=== PATIENT | male | born 1940 | race Caucasian/White ===

== ENCOUNTER 2017-09-13 08:06 | Inpatient (IN) ==
[2017-09-13] MEDS ORDERED: cefTRIAXone 1,000 MG in SODIUM CHLORIDE 0.9% 100 ML IV STA (08:39)
[2017-09-13] MEDS: ALBUTEROL 2.5 MG/3 ML NEB RESP TX SCH ×5 (08:53→16:00)
[2017-09-13] MEDS ORDERED: cefTRIAXone 1,000 MG in SYRINGE 1 EACH IV STA (09:02)
[2017-09-13 09:11] LABS: Basophils # 0.1 10*3/uL (0.0-0.2); Basophils % 0.5 % (0.0-0.8); Eosinophils # 0.1 10*3/uL (0.0-0.87); Eosinophils % 0.7 % (0.00-10.9); Hematocrit 38.4 VOL% (42.0-52.0); Hemoglobin 12.6 GM/DL (14.0-18.0); Immature Granulocytes % 1.5 %; Immature Granulocytes Absolute 0.27 #; Lymphocytes # 0.7 10*3/uL (1.4-4.0); Lymphocytes % 3.8 % (21.2-54.2); Mean Corpuscular HGB Conc 32.8 GM/DL (32-36); Mean Corpuscular Hemoglobin 32 PG (27-34); Mean Platelet Volume 11.4 FL (9.6-12.0); Monocytes # 0.9 10*3/uL (0.11-0.8); Monocytes % 5.1 % (1.7-12.7); Neutrophils # 15.5 10*3/uL (1.4-7.4); Neutrophils % 88.4 % (38.7-73.9); Platelet Count 145 T/CUMM (130-400); Red Blood Count 3.92 MC/CUMM (3.8-5.5); Red Cell Distribution Width 13.1 % (9.3-17.3); White Blood Count 17.6 T/CUMM (4-12)
[2017-09-13 09:23] LABS: Albumin 3.7 G/DL (3.4-5.0); Bilirubin,Total 1.4 MG/DL (0.2-1.0); Calcium 8.9 MG/DL (8.5-10.1); Osmolality,Calculated 279.1 MOS/KG (273-304); Troponin I Only 0.055 NG/ML (0.00-0.045)
[2017-09-13 10:03] LABS: Band Neutrophils 38 % (0-10); Eosinophils 1 % (0-10); Lymphocytes 4 % (20-55); Segmented Neutrophils 48 % (50-85); Total Cells Counted 100
[2017-09-13 10:04] LABS: Anisocytosis 1+; Platelet Estimate Adequate
[2017-09-13 10:14] LABS: Lactic Acid 2.2 MMOL/L (0.4-2.0)
[2017-09-13] MEDS ORDERED: ONDANSETRON 4 MG/2 ML VIAL IV PRN (10:34)
[2017-09-13] MEDS ORDERED: NITROGLYCERIN SL 0.4 MG TABLET SL PRN (10:38)
[2017-09-13] MEDS ORDERED: cefTRIAXone 1,000 MG in SYRINGE 1 EACH IV SCH (11:00)
[2017-09-13] MEDS: ENOXAPARIN 40 MG/0.4 ML SYRINGE SUBCUT SCH (12:19)
[2017-09-13] MEDS: SODIUM CHLORIDE 0.9% 1,000 ML IV SCH ×2 (12:22→21:54)
[2017-09-13] MEDS: AZITHROMYCIN INJ 500 MG in SODIUM CHLORIDE 0.9% 250 ML IV SCH (12:23)
[2017-09-13] MEDS ORDERED: METOPROLOL TARTRATE 25 MG TABLET PO ONE (17:01)
[2017-09-13] MEDS ORDERED: METOPROLOL SUCCINATE XL 50 MG TABLET PO ONE (17:08)
[2017-09-13] MEDS: ALBUTEROL/IPRATROPIUM 3 ML NEB RESP TX SCH (19:10)
[2017-09-13] MEDS: BUDESONIDE 0.25 MG/2 ML NEB RESP TX SCH (19:10)
[2017-09-13] MEDS: DOCUSATE SODIUM 100 MG CAPSULE PO SCH (21:49)
[2017-09-13] MEDS: INSULIN REGULAR 100 UNIT/ML SUBCUT SCH (21:49)
[2017-09-13] MEDS ORDERED: METOPROLOL TARTRATE 50 MG TABLET PO ONE (23:53)
[2017-09-14] MEDS: ALBUTEROL/IPRATROPIUM 3 ML NEB RESP TX SCH ×4 (00:11→19:40)
[2017-09-14] MEDS: SODIUM CHLORIDE 0.9% 1,000 ML IV SCH ×3 (05:45→21:38)
[2017-09-14 06:36] LABS: Basophils # 0.1 10*3/uL (0.0-0.2); Basophils % 0.4 % (0.0-0.8); Eosinophils # 0.3 10*3/uL (0.0-0.87); Eosinophils % 2.2 % (0.00-10.9); Hemoglobin 11.6 GM/DL (14.0-18.0); Immature Granulocytes Absolute 0.12 #; Lymphocytes # 0.9 10*3/uL (1.4-4.0); Lymphocytes % 7.6 % (21.2-54.2); Mean Corpuscular HGB Conc 33.1 GM/DL (32-36); Mean Corpuscular Hemoglobin 33 PG (27-34); Mean Corpuscular Volume 99.2 FL (87-102); Mean Platelet Volume 11.9 FL (9.6-12.0); Monocytes # 0.6 10*3/uL (0.11-0.8); Monocytes % 5.1 % (1.7-12.7); Neutrophils # 9.8 10*3/uL (1.4-7.4); Neutrophils % 83.7 % (38.7-73.9); Platelet Count 131 T/CUMM (130-400); Red Blood Count 3.53 MC/CUMM (3.8-5.5); Red Cell Distribution Width 13.2 % (9.3-17.3); White Blood Count 11.7 T/CUMM (4-12)
[2017-09-14 06:54] LABS: Calcium 8.4 MG/DL (8.5-10.1); Osmolality,Calculated 286.3 MOS/KG (273-304); Potassium 3.9 MMOL/L (3.5-5.1)
[2017-09-14 06:57] LABS: Amorphous Crystals,Urine Occasional /HPF (Few); Apearance,Urine Slightly Hazy (Clear); Bacteria,Urine Few /HPF (Few); Bilirubin,Urine Negative (Negative); Blood, Urine Small mg/dL (Negative); Glucose,Urine (UA) >=500 mg/dL (Negative); Ketones,Urine Negative (Negative); Nitrite,Urine Negative (Negative); Protein,Urine 100 MG/DL; RBC,Urine 15 /HPF (0-4); Urine Color Amber (Yellow); Urine Specific Gravity 1.022 (1.001-1.035); Urine Urobilinogen < 2.0 EU/DL (0.2-1.0); WBC,Urine 1 /HPF (0-6)
[2017-09-14] MEDS: BUDESONIDE 0.25 MG/2 ML NEB RESP TX SCH ×2 (07:20→19:40)
[2017-09-14] MEDS ORDERED: METOPROLOL SUCCINATE XL 50 MG TABLET PO SCH (09:00)
[2017-09-14] MEDS: PANTOPRAZOLE 40 MG TABLET PO SCH (09:22)
[2017-09-14] MEDS: MAGNESIUM OXIDE 400 MG TABLET PO SCH (09:22)
[2017-09-14] MEDS: ROSUVASTATIN 20 MG TABLET PO SCH (09:22)
[2017-09-14] MEDS: GLIMEPIRIDE 2 MG TABLET PO SCH (09:22)
[2017-09-14] MEDS: LOSARTAN 50 MG TABLET PO SCH (09:23)
[2017-09-14] MEDS: DOCUSATE SODIUM 100 MG CAPSULE PO SCH ×2 (09:23→21:30)
[2017-09-14] MEDS: ASPIRIN EC 81 MG TABLET PO SCH (09:23)
[2017-09-14] MEDS: LORATADINE 10 MG TABLET PO SCH (09:24)
[2017-09-14] MEDS: INSULIN REGULAR 100 UNIT/ML SUBCUT SCH ×4 (09:24→21:30)
[2017-09-14] MEDS: cefTRIAXone 1,000 MG in SYRINGE 1 EACH IV SCH (09:27)
[2017-09-14] MEDS: AZITHROMYCIN INJ 500 MG in SODIUM CHLORIDE 0.9% 250 ML IV SCH (12:07)
[2017-09-14] MEDS: ENOXAPARIN 40 MG/0.4 ML SYRINGE SUBCUT SCH (12:07)
[2017-09-14] MEDS ORDERED: FUROSEMIDE 20 MG/2 ML VIAL IV ONE (18:05)
[2017-09-14] MEDS ORDERED: LORazepam 2 MG/1 ML VIAL IV PRN (20:51)
[2017-09-15] MEDS: ALBUTEROL/IPRATROPIUM 3 ML NEB RESP TX SCH ×4 (00:20→20:05)
[2017-09-15 05:56] LABS: Basophils # 0.1 10*3/uL (0.0-0.2); Basophils % 0.6 % (0.0-0.8); Eosinophils # 0.4 10*3/uL (0.0-0.87); Eosinophils % 4.3 % (0.00-10.9); Hematocrit 33.6 VOL% (42.0-52.0); Hemoglobin 11.2 GM/DL (14.0-18.0); Immature Granulocytes % 0.7 %; Immature Granulocytes Absolute 0.06 #; Lymphocytes # 0.9 10*3/uL (1.4-4.0); Lymphocytes % 10.9 % (21.2-54.2); Mean Corpuscular HGB Conc 33.3 GM/DL (32-36); Mean Corpuscular Hemoglobin 32 PG (27-34); Mean Corpuscular Volume 96.8 FL (87-102); Mean Platelet Volume 11.6 FL (9.6-12.0); Monocytes # 0.6 10*3/uL (0.11-0.8); Monocytes % 6.6 % (1.7-12.7); Neutrophils # 6.6 10*3/uL (1.4-7.4); Neutrophils % 76.9 % (38.7-73.9); Platelet Count 145 T/CUMM (130-400); Red Blood Count 3.47 MC/CUMM (3.8-5.5); Red Cell Distribution Width 13.2 % (9.3-17.3); White Blood Count 8.6 T/CUMM (4-12)
[2017-09-15 06:25] LABS: Troponin I Only 0.041 NG/ML (0.00-0.045)
[2017-09-15 06:26] LABS: Calcium 8.3 MG/DL (8.5-10.1); Osmolality,Calculated 287.8 MOS/KG (273-304); Potassium 3.5 MMOL/L (3.5-5.1)
[2017-09-15] MEDS: INSULIN REGULAR 100 UNIT/ML SUBCUT SCH ×4 (07:22→21:06)
[2017-09-15] MEDS: BUDESONIDE 0.25 MG/2 ML NEB RESP TX SCH ×2 (07:43→20:05)
[2017-09-15] MEDS: ROSUVASTATIN 20 MG TABLET PO SCH (09:42)
[2017-09-15] MEDS: QUEtiapine 25 MG TABLET PO SCH ×2 (09:43→21:06)
[2017-09-15] MEDS: GLIMEPIRIDE 2 MG TABLET PO SCH (09:43)
[2017-09-15] MEDS: MAGNESIUM OXIDE 400 MG TABLET PO SCH (09:43)
[2017-09-15] MEDS: LOSARTAN 50 MG TABLET PO SCH (09:43)
[2017-09-15] MEDS: PANTOPRAZOLE 40 MG TABLET PO SCH (09:43)
[2017-09-15] MEDS: FUROSEMIDE 20 MG TABLET PO SCH (09:43)
[2017-09-15] MEDS: METOPROLOL SUCCINATE XL 50 MG TABLET PO SCH (09:43)
[2017-09-15] MEDS: DOCUSATE SODIUM 100 MG CAPSULE PO SCH ×2 (09:43→21:06)
[2017-09-15] MEDS: ASPIRIN EC 81 MG TABLET PO SCH (09:44)
[2017-09-15] MEDS: cefTRIAXone 1,000 MG in SYRINGE 1 EACH IV SCH (09:44)
[2017-09-15] MEDS: SODIUM CHLORIDE 0.9% 1,000 ML IV SCH ×2 (10:42→21:06)
[2017-09-15] MEDS: LORATADINE 10 MG TABLET PO SCH (14:12)
[2017-09-15] MEDS: ENOXAPARIN 40 MG/0.4 ML SYRINGE SUBCUT SCH (14:13)
[2017-09-15] MEDS: AZITHROMYCIN INJ 500 MG in SODIUM CHLORIDE 0.9% 250 ML IV SCH (14:15)
[2017-09-15] MEDS: DONEPEZIL 5 MG TABLET PO SCH (21:06)
[2017-09-15] MEDS: ACETAMINOPHEN 325 MG TABLET PO PRN (21:39)
[2017-09-16] MEDS: ALBUTEROL/IPRATROPIUM 3 ML NEB RESP TX SCH ×5 (00:16→19:30)
[2017-09-16] MEDS: SODIUM CHLORIDE 0.9% 1,000 ML IV SCH (05:15)
[2017-09-16] MEDS: BUDESONIDE 0.25 MG/2 ML NEB RESP TX SCH (05:41)
[2017-09-16 06:53] LABS: Basophils # 0.1 10*3/uL (0.0-0.2); Basophils % 0.6 % (0.0-0.8); Eosinophils # 0.3 10*3/uL (0.0-0.87); Eosinophils % 2.8 % (0.00-10.9); Hematocrit 32.6 VOL% (42.0-52.0); Hemoglobin 10.7 GM/DL (14.0-18.0); Immature Granulocytes % 0.7 %; Immature Granulocytes Absolute 0.07 #; Lymphocytes % 9.8 % (21.2-54.2); Mean Corpuscular HGB Conc 32.8 GM/DL (32-36); Mean Corpuscular Hemoglobin 32 PG (27-34); Mean Corpuscular Volume 97.6 FL (87-102); Mean Platelet Volume 11.5 FL (9.6-12.0); Monocytes # 0.7 10*3/uL (0.11-0.8); Monocytes % 7.3 % (1.7-12.7); Neutrophils # 7.8 10*3/uL (1.4-7.4); Neutrophils % 78.8 % (38.7-73.9); Platelet Count 140 T/CUMM (130-400); Red Blood Count 3.34 MC/CUMM (3.8-5.5); Red Cell Distribution Width 13.1 % (9.3-17.3); White Blood Count 9.9 T/CUMM (4-12)
[2017-09-16 07:10] LABS: Calcium 7.9 MG/DL (8.5-10.1); Osmolality,Calculated 283.1 MOS/KG (273-304); Potassium 3.2 MMOL/L (3.5-5.1)
[2017-09-16] MEDS: ASPIRIN EC 81 MG TABLET PO SCH (09:18)
[2017-09-16] MEDS: LOSARTAN 50 MG TABLET PO SCH (09:18)
[2017-09-16] MEDS: METOPROLOL SUCCINATE XL 50 MG TABLET PO SCH (09:18)
[2017-09-16] MEDS: LORATADINE 10 MG TABLET PO SCH (09:18)
[2017-09-16] MEDS: MAGNESIUM OXIDE 400 MG TABLET PO SCH (09:18)
[2017-09-16] MEDS: POTASSIUM CHLORIDE 20 MEQ TABLET PO SCH ×2 (09:18→20:57)
[2017-09-16] MEDS: DOCUSATE SODIUM 100 MG CAPSULE PO SCH ×2 (09:18→20:57)
[2017-09-16] MEDS: FUROSEMIDE 20 MG TABLET PO SCH (09:18)
[2017-09-16] MEDS: GLIMEPIRIDE 2 MG TABLET PO SCH (09:19)
[2017-09-16] MEDS: INSULIN REGULAR 100 UNIT/ML SUBCUT SCH ×4 (09:19→20:59)
[2017-09-16] MEDS: QUEtiapine 25 MG TABLET PO SCH ×2 (10:15→20:57)
[2017-09-16] MEDS: PANTOPRAZOLE 40 MG TABLET PO SCH (10:15)
[2017-09-16] MEDS: cefTRIAXone 1,000 MG in SYRINGE 1 EACH IV SCH (10:16)
[2017-09-16] MEDS: SODIUM CHLOR 0.9% KCL 20 MEQ 20 MEQ/1,000 ML BAG IV SCH ×2 (10:23→20:58)
[2017-09-16] MEDS: BUDESONIDE/FORMOTEROL 160-4.5 INHALER 6 GM INH SCH ×2 (12:50→20:59)
[2017-09-16] MEDS: ROSUVASTATIN 20 MG TABLET PO SCH (12:51)
[2017-09-16] MEDS: ENOXAPARIN 40 MG/0.4 ML SYRINGE SUBCUT SCH (12:51)
[2017-09-16] MEDS: AZITHROMYCIN INJ 500 MG in SODIUM CHLORIDE 0.9% 250 ML IV SCH (14:39)
[2017-09-16] MEDS: DONEPEZIL 5 MG TABLET PO SCH (20:57)
[2017-09-16] MEDS: ACETAMINOPHEN 325 MG TABLET PO PRN (21:03)
[2017-09-17] MEDS: ALBUTEROL/IPRATROPIUM 3 ML NEB RESP TX SCH ×7 (00:02→23:14)
[2017-09-17] MEDS: SODIUM CHLOR 0.9% KCL 20 MEQ 20 MEQ/1,000 ML BAG IV SCH (05:56)
[2017-09-17 07:17] LABS: Basophils # 0.1 10*3/uL (0.0-0.2); Basophils % 0.8 % (0.0-0.8); Eosinophils # 0.3 10*3/uL (0.0-0.87); Eosinophils % 3.2 % (0.00-10.9); Hematocrit 31.2 VOL% (42.0-52.0); Immature Granulocytes Absolute 0.08 #; Lymphocytes # 0.9 10*3/uL (1.4-4.0); Lymphocytes % 10.8 % (21.2-54.2); Mean Corpuscular HGB Conc 32.1 GM/DL (32-36); Mean Corpuscular Hemoglobin 32 PG (27-34); Mean Corpuscular Volume 100.6 FL (87-102); Mean Platelet Volume 11.5 FL (9.6-12.0); Monocytes # 0.6 10*3/uL (0.11-0.8); Monocytes % 7.7 % (1.7-12.7); Neutrophils # 6.1 10*3/uL (1.4-7.4); Neutrophils % 76.5 % (38.7-73.9); Platelet Count 132 T/CUMM (130-400); Red Cell Distribution Width 13.3 % (9.3-17.3); White Blood Count 7.9 T/CUMM (4-12)
[2017-09-17 07:42] LABS: Calcium 7.7 MG/DL (8.5-10.1); Osmolality,Calculated 287.7 MOS/KG (273-304); Potassium 3.8 MMOL/L (3.5-5.1)
[2017-09-17] MEDS ORDERED: SODIUM CHLORIDE 0.9% 1,000 ML IV SCH (08:00)
[2017-09-17] MEDS: GLIMEPIRIDE 2 MG TABLET PO SCH (09:14)
[2017-09-17] MEDS: DOCUSATE SODIUM 100 MG CAPSULE PO SCH ×2 (09:14→21:09)
[2017-09-17] MEDS: ROSUVASTATIN 20 MG TABLET PO SCH (09:14)
[2017-09-17] MEDS: LORATADINE 10 MG TABLET PO SCH (09:15)
[2017-09-17] MEDS: METOPROLOL SUCCINATE XL 50 MG TABLET PO SCH (09:15)
[2017-09-17] MEDS: LOSARTAN 50 MG TABLET PO SCH (09:15)
[2017-09-17] MEDS: ASPIRIN EC 81 MG TABLET PO SCH (09:15)
[2017-09-17] MEDS: PANTOPRAZOLE 40 MG TABLET PO SCH (09:15)
[2017-09-17] MEDS: MAGNESIUM OXIDE 400 MG TABLET PO SCH (09:15)
[2017-09-17] MEDS: POTASSIUM CHLORIDE 20 MEQ TABLET PO SCH ×2 (09:15→21:09)
[2017-09-17] MEDS: FUROSEMIDE 20 MG TABLET PO SCH (09:15)
[2017-09-17] MEDS: methylPREDNISolone SOD SUC 40 MG/1 ML VIAL IV SCH ×2 (09:16→17:49)
[2017-09-17] MEDS: BUDESONIDE/FORMOTEROL 160-4.5 INHALER 6 GM INH SCH ×2 (09:22→21:10)
[2017-09-17] MEDS ORDERED: FUROSEMIDE 40 MG/4 ML VIAL IV ONE (10:43)
[2017-09-17] MEDS: INSULIN REGULAR 100 UNIT/ML SUBCUT SCH ×4 (12:42→21:01)
[2017-09-17] MEDS: cefTRIAXone 1,000 MG in SYRINGE 1 EACH IV SCH (14:34)
[2017-09-17] MEDS: ENOXAPARIN 40 MG/0.4 ML SYRINGE SUBCUT SCH (14:37)
[2017-09-17] MEDS: AZITHROMYCIN INJ 500 MG in SODIUM CHLORIDE 0.9% 250 ML IV SCH (14:47)
[2017-09-17] MEDS: ACETAMINOPHEN 325 MG TABLET PO PRN (21:09)
[2017-09-17] MEDS: QUEtiapine 25 MG TABLET PO SCH (21:09)
[2017-09-17] MEDS: DONEPEZIL 5 MG TABLET PO SCH (21:09)
[2017-09-18] MEDS: methylPREDNISolone SOD SUC 40 MG/1 ML VIAL IV SCH ×4 (00:16→23:35)
[2017-09-18] MEDS: ALBUTEROL/IPRATROPIUM 3 ML NEB RESP TX SCH ×6 (03:15→23:18)
[2017-09-18 06:37] LABS: Basophils % 0.2 % (0.0-0.8); Eosinophils % 0.1 % (0.00-10.9); Hematocrit 33.1 VOL% (42.0-52.0); Immature Granulocytes % 1.6 %; Immature Granulocytes Absolute 0.15 #; Lymphocytes # 0.8 10*3/uL (1.4-4.0); Lymphocytes % 8.6 % (21.2-54.2); Mean Corpuscular HGB Conc 33.2 GM/DL (32-36); Mean Corpuscular Hemoglobin 32 PG (27-34); Mean Corpuscular Volume 97.1 FL (87-102); Mean Platelet Volume 11.7 FL (9.6-12.0); Monocytes # 0.3 10*3/uL (0.11-0.8); Monocytes % 2.6 % (1.7-12.7); Neutrophils # 8.3 10*3/uL (1.4-7.4); Neutrophils % 86.9 % (38.7-73.9); Platelet Count 167 T/CUMM (130-400); Red Blood Count 3.41 MC/CUMM (3.8-5.5); Red Cell Distribution Width 13.1 % (9.3-17.3); White Blood Count 9.6 T/CUMM (4-12)
[2017-09-18 07:11] LABS: Calcium 8.1 MG/DL (8.5-10.1); Osmolality,Calculated 288.3 MOS/KG (273-304); Potassium 3.9 MMOL/L (3.5-5.1)
[2017-09-18] MEDS: INSULIN REGULAR 100 UNIT/ML SUBCUT SCH ×4 (09:19→20:46)
[2017-09-18] MEDS: FUROSEMIDE 20 MG TABLET PO SCH (09:20)
[2017-09-18] MEDS: LORATADINE 10 MG TABLET PO SCH (09:20)
[2017-09-18] MEDS: LOSARTAN 50 MG TABLET PO SCH (09:20)
[2017-09-18] MEDS: GLIMEPIRIDE 2 MG TABLET PO SCH (09:21)
[2017-09-18] MEDS: MAGNESIUM OXIDE 400 MG TABLET PO SCH (09:21)
[2017-09-18] MEDS: ASPIRIN EC 81 MG TABLET PO SCH (09:21)
[2017-09-18] MEDS: ROSUVASTATIN 20 MG TABLET PO SCH (09:21)
[2017-09-18] MEDS: METOPROLOL SUCCINATE XL 50 MG TABLET PO SCH (09:21)
[2017-09-18] MEDS: PANTOPRAZOLE 40 MG TABLET PO SCH (09:21)
[2017-09-18] MEDS: POTASSIUM CHLORIDE 20 MEQ TABLET PO SCH ×2 (09:21→20:45)
[2017-09-18] MEDS: DOCUSATE SODIUM 100 MG CAPSULE PO SCH ×2 (09:21→20:45)
[2017-09-18] MEDS: BUDESONIDE/FORMOTEROL 160-4.5 INHALER 6 GM INH SCH ×2 (09:23→20:47)
[2017-09-18] MEDS: cefTRIAXone 1,000 MG in SYRINGE 1 EACH IV SCH (09:26)
[2017-09-18] MEDS: ENOXAPARIN 40 MG/0.4 ML SYRINGE SUBCUT SCH (12:15)
[2017-09-18] MEDS: AZITHROMYCIN INJ 500 MG in SODIUM CHLORIDE 0.9% 250 ML IV SCH (12:16)
[2017-09-18] MEDS: ACETAMINOPHEN 325 MG TABLET PO PRN (20:45)
[2017-09-18] MEDS: DONEPEZIL 5 MG TABLET PO SCH (20:45)
[2017-09-18] MEDS: QUEtiapine 25 MG TABLET PO SCH (20:45)
[2017-09-19] MEDS: ALBUTEROL/IPRATROPIUM 3 ML NEB RESP TX SCH ×2 (03:03→07:27)
[2017-09-19 06:18] LABS: Basophils % 0.1 % (0.0-0.8); Eosinophils % 0.1 % (0.00-10.9); Hematocrit 32.2 VOL% (42.0-52.0); Hemoglobin 10.3 GM/DL (14.0-18.0); Immature Granulocytes % 1.5 %; Immature Granulocytes Absolute 0.15 #; Lymphocytes # 1.2 10*3/uL (1.4-4.0); Lymphocytes % 11.4 % (21.2-54.2); Mean Corpuscular Hemoglobin 32 PG (27-34); Mean Corpuscular Volume 99.4 FL (87-102); Mean Platelet Volume 11.5 FL (9.6-12.0); Monocytes # 0.4 10*3/uL (0.11-0.8); Monocytes % 4.1 % (1.7-12.7); Neutrophils # 8.5 10*3/uL (1.4-7.4); Neutrophils % 82.8 % (38.7-73.9); Platelet Count 183 T/CUMM (130-400); Red Blood Count 3.24 MC/CUMM (3.8-5.5); Red Cell Distribution Width 13.1 % (9.3-17.3); White Blood Count 10.3 T/CUMM (4-12)
[2017-09-19 06:38] LABS: Calcium 8.3 MG/DL (8.5-10.1)
[2017-09-19 06:39] LABS: Osmolality,Calculated 284.4 MOS/KG (273-304); Potassium 4.2 MMOL/L (3.5-5.1)
[2017-09-19 06:42] LABS: Hypochromasia 1+; Platelet Estimate Adequate
[2017-09-19] MEDS: INSULIN REGULAR 100 UNIT/ML SUBCUT SCH ×2 (09:34→12:27)
[2017-09-19] MEDS: cefTRIAXone 1,000 MG in SYRINGE 1 EACH IV SCH (09:36)
[2017-09-19] MEDS: ROSUVASTATIN 20 MG TABLET PO SCH (09:38)
[2017-09-19] MEDS: ASPIRIN EC 81 MG TABLET PO SCH (09:38)
[2017-09-19] MEDS: LORATADINE 10 MG TABLET PO SCH (09:38)
[2017-09-19] MEDS: DOCUSATE SODIUM 100 MG CAPSULE PO SCH (09:38)
[2017-09-19] MEDS: GLIMEPIRIDE 2 MG TABLET PO SCH (09:38)
[2017-09-19] MEDS: LOSARTAN 50 MG TABLET PO SCH (09:38)
[2017-09-19] MEDS: methylPREDNISolone SOD SUC 40 MG/1 ML VIAL IV SCH (09:38)
[2017-09-19] MEDS: PANTOPRAZOLE 40 MG TABLET PO SCH (09:39)
[2017-09-19] MEDS: POTASSIUM CHLORIDE 20 MEQ TABLET PO SCH (09:39)
[2017-09-19] MEDS: BUDESONIDE/FORMOTEROL 160-4.5 INHALER 6 GM INH SCH (09:39)
[2017-09-19] MEDS: METOPROLOL SUCCINATE XL 50 MG TABLET PO SCH (09:39)
[2017-09-19] MEDS: FUROSEMIDE 20 MG TABLET PO SCH (09:39)
[2017-09-19] MEDS: MAGNESIUM OXIDE 400 MG TABLET PO SCH (09:39)
[2017-09-19] MEDS: ENOXAPARIN 40 MG/0.4 ML SYRINGE SUBCUT SCH (12:27)
[2017-09-19] MEDS: AZITHROMYCIN INJ 500 MG in SODIUM CHLORIDE 0.9% 250 ML IV SCH (12:38)
[2017-09-19 13:06] VITALS: BP 145/78
== END 2017-09-19 14:17 | disposition home or self-care (01) | DRG 193 ==
LOC: N.ED 08:06 → N.EDINP 10:34 → N.5E 11:02
PROVIDERS: ADMIT Family Medicine; ATTEND Family Medicine

== ENCOUNTER 2019-07-30 14:15 | Inpatient (IN) ==
[2019-07-30] MEDS ORDERED: ATROPINE 0.4 MG/1 ML VIAL ONE (14:26)
[2019-07-30] MEDS ORDERED: EPINEPHrine 1 MG/10 ML SYRINGE ONE (14:26)
[2019-07-30] MEDS ORDERED: ONDANSETRON 4 MG/2 ML VIAL ONE (14:33)
[2019-07-30 14:51] LABS: Basophils # 0.1 10*3/uL (0.0-0.2); Basophils % 0.6 % (0.0-0.8); Eosinophils # 0.2 10*3/uL (0.0-0.87); Eosinophils % 1.1 % (0.00-10.9); Hematocrit 42.8 VOL% (42.0-52.0); Hemoglobin 13.1 GM/DL (14.0-18.0); Immature Granulocytes % 1.2 %; Immature Granulocytes Absolute 0.22 #; Mean Corpuscular HGB Conc 30.6 GM/DL (32-36); Mean Corpuscular Volume 98.6 FL (87-102); Mean Platelet Volume 13.6 FL (9.6-12.0); Neutrophils % 76.1 % (38.7-73.9); Platelet Count 142 T/CUMM (130-400); Red Blood Count 4.34 MC/CUMM (3.8-5.5); Red Cell Distribution Width 13.1 % (9.3-17.3)
[2019-07-30] MEDS ORDERED: ASPIRIN 325 MG TABLET PO STA (14:54)
[2019-07-30] MEDS ORDERED: SODIUM CHLORIDE 0.9% 1,000 ML IV STA (14:54)
[2019-07-30] MEDS ORDERED: DOPamine 800 MG/250 ML PREMIX IV PRN (14:55)
[2019-07-30] MEDS ORDERED: SODIUM BICARBONATE 50 MEQ/50 ML VIAL IV STA (14:55)
[2019-07-30] MEDS ORDERED: CALCIUM CHLORIDE 1,000 MG/10 ML SYRINGE IV STA (14:55)
[2019-07-30] MEDS ORDERED: ATROPINE 1 MG/10 ML SYRINGE IV STA (14:56)
[2019-07-30] MEDS ORDERED: EPINEPHrine 1 MG/10 ML SYRINGE IV STA (14:56)
[2019-07-30 15:02] LABS: Blood Urea Nitrogen 77 MG/DL (7-18); Calcium 8.6 MG/DL (8.5-10.1); Glucose 305 MG/DL (74-106); Osmolality,Calculated 295.7 MOS/KG (273-304)
[2019-07-30 15:03] LABS: Estimated Glom Filtration Rate 9 ML/MIN
[2019-07-30 15:11] LABS: INR 1.1; PT Patient Result 11.6 SECS (9.8-11.9)
[2019-07-30] MEDS ORDERED: LIDOCAINE 1% 20 ML VIAL ONE (15:19)
[2019-07-30] MEDS ORDERED: HEPARIN/NACL 0.9% 2 UNITS/ML 1,000 ML IV ONE (15:19)
[2019-07-30] MEDS ORDERED: ACETAMINOPHEN 325 MG TABLET PO PRN (16:19)
[2019-07-30] MEDS ORDERED: ONDANSETRON 4 MG/2 ML VIAL IV PRN (16:19)
[2019-07-30] MEDS ORDERED: GLUCAGON 1 MG VIAL IM PRN (16:24)
[2019-07-30] MEDS ORDERED: DEXTROSE 50% 25 GM/50 ML VIAL IV PRN (16:24)
[2019-07-30] MEDS ORDERED: SODIUM CHLORIDE 0.9% 1,000 ML IV SCH (16:30)
[2019-07-30 18:37] LABS: Amorphous Crystals,Urine Occasional /HPF (Few); Apearance,Urine Slightly Hazy (Clear); Bacteria,Urine Occasional /HPF (Few); Bilirubin,Urine Negative (Negative); Blood, Urine Small mg/dL (Negative); Glucose,Urine (UA) Negative (Negative); Hyaline Casts,Urine 229 /LPF (0-3); Ketones,Urine Negative (Negative); Mucus,Urine Occasional /LPF (Occasional); Nitrite,Urine Negative (Negative); Protein,Urine 100 MG/DL; RBC,Urine 2 /HPF (0-4); Squamous Epithelial Cell,Urine Occasional /HPF (0-10); Urine Color Yellow (Yellow); Urine Specific Gravity 1.013 (1.001-1.035); Urine Urobilinogen < 2.0 EU/DL (0.2-1.0)
[2019-07-30] MEDS: INSULIN REGULAR 100 UNIT/ML SUBCUT SCH ×2 (18:48→21:22)
[2019-07-30] MEDS: DOPamine 800 MG/250 ML PREMIX IV PRN (20:45)
[2019-07-31] MEDS: DOPamine 800 MG/250 ML PREMIX IV PRN (04:34)
[2019-07-31 05:31] LABS: Basophils # 0.1 10*3/uL (0.0-0.2); Basophils % 0.4 % (0.0-0.8); Eosinophils # 0.1 10*3/uL (0.0-0.87); Eosinophils % 0.5 % (0.00-10.9); Hematocrit 38.9 VOL% (42.0-52.0); Hemoglobin 12.1 GM/DL (14.0-18.0); Immature Granulocytes % 0.7 %; Immature Granulocytes Absolute 0.13 #; Lymphocytes # 1.2 10*3/uL (1.4-4.0); Lymphocytes % 6.6 % (21.2-54.2); Mean Corpuscular HGB Conc 31.1 GM/DL (32-36); Mean Platelet Volume 12.7 FL (9.6-12.0); Monocytes % 6.5 % (1.7-12.7); Neutrophils % 85.3 % (38.7-73.9); Platelet Count 133 T/CUMM (130-400); Red Blood Count 3.97 MC/CUMM (3.8-5.5); White Blood Count 18.6 T/CUMM (4-12)
[2019-07-31 06:17] LABS: Calcium 9.1 MG/DL (8.5-10.1); Osmolality,Calculated 288.4 MOS/KG (273-304); Risk Ratio 2.86; VLDL CHOLESTEROL 23.6 MG/DL
[2019-07-31] MEDS: INSULIN REGULAR 100 UNIT/ML SUBCUT SCH ×4 (09:18→21:23)
[2019-07-31] MEDS: HYDROCORTISONE 100 MG VIAL IV SCH ×2 (09:40→18:32)
[2019-07-31] MEDS ORDERED: SODIUM POLYSTYRENE SULFATE 15 GM/60 ML BOTTLE PO PRN (10:17)
[2019-07-31] MEDS: ENOXAPARIN 30 MG/0.3 ML SYRINGE SUBCUT SCH (10:47)
[2019-07-31] MEDS: SODIUM BICARB INJ 50 MEQ in SODIUM CHLORIDE 0.45% 1,000 ML IV SCH (11:35)
[2019-07-31] MEDS: MORPHINE 4 MG/1 ML VIAL IV PRN (23:15)
[2019-07-31] MEDS: ZALEPLON 5 MG CAPSULE PO PRN (23:15)
[2019-07-31] MEDS ORDERED: LORazepam 2 MG/1 ML VIAL IV ONE (23:56)
[2019-07-31] MEDS ORDERED: diphenhydrAMINE 50 MG/1 ML VIAL IV ONE (23:56)
[2019-08-01] MEDS ORDERED: HALOPERIDOL 5 MG/ML AMP IV ONE ×2 (01:26→02:09)
[2019-08-01] MEDS ORDERED: diphenhydrAMINE 50 MG/1 ML VIAL IV ONE ×2 (01:27→02:09)
[2019-08-01 02:23] LABS: Allen Test Positive; Pt O2 Delivery Device BIPAP
[2019-08-01 02:24] LABS: ABG Base Excess -4.3 MMOL/L (-2.5-2.5); ABG HCO3 20.9 MMOL/L (20-26); ABG Oxygen Saturation 99.8 % (95-100); ABG PCO2 42.8 MM HG (35-48); ABG PH 7.315 (7.35-7.45); ABG TCO2 19.6 MMOL/L (23-27)
[2019-08-01] MEDS ORDERED: HYDROCORTISONE 100 MG VIAL IV SCH (04:00)
[2019-08-01] MEDS: HYDROCORTISONE 100 MG VIAL IV SCH (04:34)
[2019-08-01 04:51] LABS: Basophils % 0.3 % (0.0-0.8); Eosinophils % 0.3 % (0.00-10.9); Hematocrit 32.8 VOL% (42.0-52.0); Hemoglobin 10.4 GM/DL (14.0-18.0); Immature Granulocytes % 0.7 %; Immature Granulocytes Absolute 0.08 #; Lymphocytes # 0.7 10*3/uL (1.4-4.0); Lymphocytes % 5.6 % (21.2-54.2); Mean Corpuscular HGB Conc 31.7 GM/DL (32-36); Mean Corpuscular Volume 95.3 FL (87-102); Mean Platelet Volume 13.3 FL (9.6-12.0); Monocytes % 4.9 % (1.7-12.7); Neutrophils % 88.2 % (38.7-73.9); Red Blood Count 3.44 MC/CUMM (3.8-5.5); Red Cell Distribution Width 13.2 % (9.3-17.3); White Blood Count 11.5 T/CUMM (4-12)
[2019-08-01 05:03] LABS: Calcium 8.6 MG/DL (8.5-10.1); Osmolality,Calculated 298.8 MOS/KG (273-304)
[2019-08-01 05:07] LABS: Platelet Count 107 T/CUMM (130-400)
[2019-08-01 05:10] LABS: Hypochromasia 1+; Microcytosis 1+
[2019-08-01] MEDS: SODIUM BICARB INJ 50 MEQ in SODIUM CHLORIDE 0.45% 1,000 ML IV SCH (06:39)
[2019-08-01] MEDS ORDERED: LIDOCAINE 1%/EPI INJ 20 ML VIAL ONE (08:40)
[2019-08-01] MEDS ORDERED: HYDROmorphone 2 MG/1 ML VIAL ONE (09:06)
[2019-08-01] MEDS ORDERED: MIDAZOLAM 2 MG/2 ML VIAL ONE (09:06)
[2019-08-01] MEDS ORDERED: ceFAZolin 1,000 MG VIAL ONE (09:11)
[2019-08-01] MEDS ORDERED: TISSUE ADHESIVE 1 EACH APPLICATOR TOP ONE (09:17)
[2019-08-01] MEDS: INSULIN REGULAR 100 UNIT/ML SUBCUT SCH ×4 (09:26→20:56)
[2019-08-01] MEDS ORDERED: HEPARIN/NACL 0.9% 2 UNITS/ML 500 ML IV ONE (10:25)
[2019-08-01] MEDS: ENOXAPARIN 30 MG/0.3 ML SYRINGE SUBCUT SCH (10:42)
[2019-08-01] MEDS: SODIUM CHLORIDE 0.45% 1,000 ML IV SCH ×2 (10:42→19:01)
[2019-08-01] MEDS ORDERED: DEXTROSE 10% 250 ML IV ONE (15:33)
[2019-08-01] MEDS: DEXTROSE 10% 1,000 ML IV SCH ×2 (15:36→15:43)
[2019-08-01] MEDS ORDERED: DEXTROSE 10% 250 ML IV SCH (15:42)
[2019-08-01] MEDS: ACETAMINOPHEN/CODEINE 300-30 MG TABLET PO PRN (20:55)
[2019-08-01] MEDS: ZALEPLON 5 MG CAPSULE PO PRN (21:00)
[2019-08-01] MEDS: MORPHINE 4 MG/1 ML VIAL IV PRN (21:00)
[2019-08-02] MEDS: SODIUM CHLORIDE 0.45% 1,000 ML IV SCH ×3 (01:30→22:13)
[2019-08-02] MEDS: MORPHINE 4 MG/1 ML VIAL IV PRN (04:30)
[2019-08-02 04:57] LABS: Basophils # 0.1 10*3/uL (0.0-0.2); Basophils % 0.7 % (0.0-0.8); Eosinophils # 0.2 10*3/uL (0.0-0.87); Eosinophils % 1.9 % (0.00-10.9); Hemoglobin 11.1 GM/DL (14.0-18.0); Lymphocytes # 0.8 10*3/uL (1.4-4.0); Mean Corpuscular HGB Conc 30.8 GM/DL (32-36); Mean Corpuscular Volume 99.2 FL (87-102); Mean Platelet Volume 12.2 FL (9.6-12.0); Monocytes % 6.5 % (1.7-12.7); Neutrophils % 81.9 % (38.7-73.9); Platelet Count 116 T/CUMM (130-400); Red Blood Count 3.63 MC/CUMM (3.8-5.5); Red Cell Distribution Width 13.2 % (9.3-17.3); White Blood Count 10.3 T/CUMM (4-12)
[2019-08-02 05:17] LABS: Calcium 8.6 MG/DL (8.5-10.1); Osmolality,Calculated 291.7 MOS/KG (273-304)
[2019-08-02] MEDS ORDERED: DEXTROSE 10% 250 ML BAG IV PRN (05:39)
[2019-08-02] MEDS ORDERED: DEXTROSE 10% 1,000 ML IV SCH (06:00)
[2019-08-02] MEDS: INSULIN REGULAR 100 UNIT/ML SUBCUT SCH ×4 (08:33→22:12)
[2019-08-02] MEDS: ENOXAPARIN 30 MG/0.3 ML SYRINGE SUBCUT SCH (10:35)
[2019-08-02] MEDS ORDERED: METOPROLOL SUCCINATE XL 25 MG TABLET PO SCH (12:00)
[2019-08-02] MEDS: ALBUTEROL/IPRATROPIUM 3 ML NEB RESP TX PRN ×2 (13:00→21:02)
[2019-08-02] MEDS: DUTASTERIDE 0.5 MG CAPSULE PO SCH (18:33)
[2019-08-02] MEDS: ZALEPLON 5 MG CAPSULE PO PRN (22:11)
[2019-08-02] MEDS: ACETAMINOPHEN/CODEINE 300-30 MG TABLET PO PRN (22:11)
[2019-08-02] MEDS: DONEPEZIL 10 MG TABLET PO SCH (22:12)
[2019-08-02] MEDS: PRAMIPEXOLE 0.25 MG TABLET PO SCH (22:12)
[2019-08-02] MEDS: QUEtiapine 25 MG TABLET PO SCH (22:12)
[2019-08-03 06:33] LABS: Basophils # 0.1 10*3/uL (0.0-0.2); Basophils % 0.6 % (0.0-0.8); Eosinophils # 0.3 10*3/uL (0.0-0.87); Eosinophils % 3.1 % (0.00-10.9); Hematocrit 33.2 VOL% (42.0-52.0); Hemoglobin 10.2 GM/DL (14.0-18.0); Immature Granulocytes % 0.8 %; Immature Granulocytes Absolute 0.07 #; Lymphocytes # 0.6 10*3/uL (1.4-4.0); Lymphocytes % 6.7 % (21.2-54.2); Mean Corpuscular HGB Conc 30.7 GM/DL (32-36); Mean Corpuscular Volume 98.2 FL (87-102); Monocytes % 7.4 % (1.7-12.7); Neutrophils % 81.4 % (38.7-73.9); Platelet Count 110 T/CUMM (130-400); Red Blood Count 3.38 MC/CUMM (3.8-5.5); Red Cell Distribution Width 13.1 % (9.3-17.3); White Blood Count 8.3 T/CUMM (4-12)
[2019-08-03 06:56] LABS: Calcium 8.6 MG/DL (8.5-10.1); Osmolality,Calculated 282.8 MOS/KG (273-304)
[2019-08-03] MEDS ORDERED: FUROSEMIDE 40 MG/4 ML VIAL IV ONE (09:00)
[2019-08-03] MEDS: DUTASTERIDE 0.5 MG CAPSULE PO SCH (09:28)
[2019-08-03] MEDS: LORATADINE 10 MG TABLET PO SCH (09:28)
[2019-08-03] MEDS: ROSUVASTATIN 20 MG TABLET PO SCH (09:29)
[2019-08-03] MEDS: MAGNESIUM OXIDE 400 MG TABLET PO SCH (09:29)
[2019-08-03] MEDS: minoxidiL 2.5 MG TABLET PO SCH ×2 (09:29→20:40)
[2019-08-03] MEDS: ASPIRIN EC 81 MG TABLET PO SCH (09:30)
[2019-08-03] MEDS: CYANOCOBALAMIN 500 MCG TABLET PO SCH (09:30)
[2019-08-03] MEDS: cloNIDine 0.1 MG TABLET PO SCH (09:30)
[2019-08-03] MEDS: METOPROLOL SUCCINATE XL 25 MG TABLET PO SCH (09:30)
[2019-08-03] MEDS: INSULIN REGULAR 100 UNIT/ML SUBCUT SCH ×4 (09:31→21:05)
[2019-08-03] MEDS: SODIUM CHLORIDE 0.45% 1,000 ML IV SCH ×2 (16:54→20:40)
[2019-08-03] MEDS: ALBUTEROL/IPRATROPIUM 3 ML NEB RESP TX PRN (19:32)
[2019-08-03] MEDS: DONEPEZIL 10 MG TABLET PO SCH (20:40)
[2019-08-03] MEDS: QUEtiapine 25 MG TABLET PO SCH (20:40)
[2019-08-03] MEDS: PRAMIPEXOLE 0.25 MG TABLET PO SCH (20:40)
[2019-08-04 05:48] LABS: Basophils # 0.1 10*3/uL (0.0-0.2); Basophils % 0.6 % (0.0-0.8); Eosinophils # 0.3 10*3/uL (0.0-0.87); Hematocrit 35.6 VOL% (42.0-52.0); Hemoglobin 11.1 GM/DL (14.0-18.0); Immature Granulocytes % 0.7 %; Immature Granulocytes Absolute 0.08 #; Lymphocytes # 0.7 10*3/uL (1.4-4.0); Lymphocytes % 6.7 % (21.2-54.2); Mean Corpuscular HGB Conc 31.2 GM/DL (32-36); Mean Platelet Volume 12.3 FL (9.6-12.0); Monocytes % 7.2 % (1.7-12.7); Neutrophils % 81.8 % (38.7-73.9); Platelet Count 144 T/CUMM (130-400); Red Blood Count 3.67 MC/CUMM (3.8-5.5); White Blood Count 10.9 T/CUMM (4-12)
[2019-08-04 06:05] LABS: Calcium 9.1 MG/DL (8.5-10.1); Osmolality,Calculated 288.4 MOS/KG (273-304)
[2019-08-04] MEDS: ALBUTEROL/IPRATROPIUM 3 ML NEB RESP TX PRN ×2 (07:00→13:11)
[2019-08-04] MEDS: ROSUVASTATIN 20 MG TABLET PO SCH (08:27)
[2019-08-04] MEDS: minoxidiL 2.5 MG TABLET PO SCH ×2 (08:27→20:01)
[2019-08-04] MEDS: METOPROLOL SUCCINATE XL 25 MG TABLET PO SCH (08:27)
[2019-08-04] MEDS: DUTASTERIDE 0.5 MG CAPSULE PO SCH (08:29)
[2019-08-04] MEDS: INSULIN REGULAR 100 UNIT/ML SUBCUT SCH ×4 (08:30→20:07)
[2019-08-04] MEDS: LORATADINE 10 MG TABLET PO SCH (08:30)
[2019-08-04] MEDS: MAGNESIUM OXIDE 400 MG TABLET PO SCH (08:30)
[2019-08-04] MEDS: CYANOCOBALAMIN 500 MCG TABLET PO SCH (08:30)
[2019-08-04] MEDS: cloNIDine 0.1 MG TABLET PO SCH (08:30)
[2019-08-04] MEDS: ASPIRIN EC 81 MG TABLET PO SCH (08:30)
[2019-08-04] MEDS ORDERED: METOPROLOL SUCCINATE XL 50 MG TABLET PO ONE (10:17)
[2019-08-04] MEDS: OXYBUTYNIN XL 10 MG TABLET PO SCH (10:38)
[2019-08-04] MEDS: SODIUM CHLORIDE 0.45% 1,000 ML IV SCH (20:01)
[2019-08-04] MEDS: PRAMIPEXOLE 0.25 MG TABLET PO SCH (20:01)
[2019-08-04] MEDS: QUEtiapine 25 MG TABLET PO SCH (20:01)
[2019-08-04] MEDS: DONEPEZIL 10 MG TABLET PO SCH (20:01)
[2019-08-04] MEDS: SERTRALINE 25 MG TABLET PO SCH (20:03)
[2019-08-04] MEDS: ALBUTEROL/IPRATROPIUM 3 ML NEB RESP TX SCH (20:15)
[2019-08-05] MEDS: ALBUTEROL/IPRATROPIUM 3 ML NEB RESP TX SCH ×4 (02:08→19:34)
[2019-08-05 05:51] LABS: Basophils # 0.1 10*3/uL (0.0-0.2); Basophils % 0.5 % (0.0-0.8); Eosinophils # 0.4 10*3/uL (0.0-0.87); Eosinophils % 1.8 % (0.00-10.9); Hemoglobin 11.2 GM/DL (14.0-18.0); Immature Granulocytes % 0.8 %; Immature Granulocytes Absolute 0.16 #; Lymphocytes % 4.8 % (21.2-54.2); Mean Corpuscular HGB Conc 30.3 GM/DL (32-36); Mean Corpuscular Volume 100.3 FL (87-102); Mean Platelet Volume 11.6 FL (9.6-12.0); Monocytes % 6.2 % (1.7-12.7); Neutrophils % 85.9 % (38.7-73.9); Platelet Count 165 T/CUMM (130-400); Red Blood Count 3.69 MC/CUMM (3.8-5.5); White Blood Count 20.2 T/CUMM (4-12)
[2019-08-05 06:20] LABS: Calcium 9.1 MG/DL (8.5-10.1); Osmolality,Calculated 286.4 MOS/KG (273-304)
[2019-08-05 07:18] LABS: Band Neutrophils 2 % (0-10); Eosinophils 2 % (0-10); Lymphocytes 1 % (20-55); Segmented Neutrophils 93 % (50-85); Total Cells Counted 100
[2019-08-05 07:19] LABS: Schistocytes Slight
[2019-08-05 07:20] LABS: Platelet Estimate Adequate
[2019-08-05] MEDS ORDERED: METOPROLOL SUCCINATE XL 100 MG TABLET PO SCH (09:00)
[2019-08-05] MEDS: ASPIRIN EC 81 MG TABLET PO SCH (09:58)
[2019-08-05] MEDS: MAGNESIUM OXIDE 400 MG TABLET PO SCH (09:58)
[2019-08-05] MEDS: CYANOCOBALAMIN 500 MCG TABLET PO SCH (09:58)
[2019-08-05] MEDS: cloNIDine 0.1 MG TABLET PO SCH (09:59)
[2019-08-05] MEDS: OXYBUTYNIN XL 10 MG TABLET PO SCH (09:59)
[2019-08-05] MEDS: ROSUVASTATIN 20 MG TABLET PO SCH (09:59)
[2019-08-05] MEDS: DUTASTERIDE 0.5 MG CAPSULE PO SCH (09:59)
[2019-08-05] MEDS: LORATADINE 10 MG TABLET PO SCH (09:59)
[2019-08-05] MEDS: minoxidiL 2.5 MG TABLET PO SCH ×2 (09:59→22:34)
[2019-08-05] MEDS: SODIUM CHLORIDE 0.45% 1,000 ML IV SCH (10:00)
[2019-08-05] MEDS: INSULIN REGULAR 100 UNIT/ML SUBCUT SCH ×4 (10:00→22:42)
[2019-08-05] MEDS: BISOPROLOL 5 MG TABLET PO SCH ×2 (12:17→22:37)
[2019-08-05] MEDS: FUROSEMIDE 20 MG/2 ML VIAL IV SCH ×2 (12:17→16:21)
[2019-08-05] MEDS: cefTRIAXone 1,000 MG in SYRINGE 1 EACH IV SCH (13:37)
[2019-08-05] MEDS: methylPREDNISolone SOD SUC 40 MG/1 ML VIAL IV SCH ×2 (13:37→22:40)
[2019-08-05] MEDS: SERTRALINE 25 MG TABLET PO SCH (22:35)
[2019-08-05] MEDS: PRAMIPEXOLE 0.25 MG TABLET PO SCH (22:35)
[2019-08-05] MEDS: DONEPEZIL 10 MG TABLET PO SCH (22:37)
[2019-08-05] MEDS: QUEtiapine 25 MG TABLET PO SCH (22:37)
[2019-08-06] MEDS: ALBUTEROL/IPRATROPIUM 3 ML NEB RESP TX SCH ×4 (00:29→19:40)
[2019-08-06] MEDS: methylPREDNISolone SOD SUC 40 MG/1 ML VIAL IV SCH ×3 (05:58→22:35)
[2019-08-06 07:03] LABS: Basophils % 0.1 % (0.0-0.8); Hematocrit 35.3 VOL% (42.0-52.0); Hemoglobin 10.8 GM/DL (14.0-18.0); Immature Granulocytes % 0.8 %; Immature Granulocytes Absolute 0.12 #; Lymphocytes # 0.5 10*3/uL (1.4-4.0); Lymphocytes % 3.5 % (21.2-54.2); Mean Corpuscular HGB Conc 30.6 GM/DL (32-36); Mean Corpuscular Volume 98.6 FL (87-102); Monocytes % 2.5 % (1.7-12.7); Neutrophils % 93.1 % (38.7-73.9); Platelet Count 131 T/CUMM (130-400); Red Blood Count 3.58 MC/CUMM (3.8-5.5); Red Cell Distribution Width 12.7 % (9.3-17.3); White Blood Count 15.5 T/CUMM (4-12)
[2019-08-06 07:17] LABS: Osmolality,Calculated 304.8 MOS/KG (273-304)
[2019-08-06 08:19] LABS: Band Neutrophils 8 % (0-10); Lymphocytes 6 % (20-55); Platelet Estimate Adequate; Segmented Neutrophils 84 % (50-85); Total Cells Counted 100
[2019-08-06 08:20] LABS: Anisocytosis Slight; Macrocytosis Slight
[2019-08-06] MEDS: INSULIN REGULAR 100 UNIT/ML SUBCUT SCH ×4 (09:26→22:40)
[2019-08-06] MEDS: FUROSEMIDE 20 MG/2 ML VIAL IV SCH ×2 (09:27→16:38)
[2019-08-06] MEDS: LORATADINE 10 MG TABLET PO SCH (09:28)
[2019-08-06] MEDS: minoxidiL 2.5 MG TABLET PO SCH ×2 (09:28→22:33)
[2019-08-06] MEDS: DUTASTERIDE 0.5 MG CAPSULE PO SCH (09:28)
[2019-08-06] MEDS: ROSUVASTATIN 20 MG TABLET PO SCH (09:28)
[2019-08-06] MEDS: ASPIRIN EC 81 MG TABLET PO SCH (09:28)
[2019-08-06] MEDS: cloNIDine 0.1 MG TABLET PO SCH (09:28)
[2019-08-06] MEDS: OXYBUTYNIN XL 10 MG TABLET PO SCH (09:28)
[2019-08-06] MEDS: MAGNESIUM OXIDE 400 MG TABLET PO SCH (09:28)
[2019-08-06] MEDS: CYANOCOBALAMIN 500 MCG TABLET PO SCH (09:29)
[2019-08-06] MEDS: BISOPROLOL 5 MG TABLET PO SCH ×2 (09:31→22:32)
[2019-08-06 10:53] LABS: ABG Base Excess 4.7 MMOL/L (-2.5-2.5); ABG HCO3 28.6 MMOL/L (20-26); ABG Oxygen Saturation 99.1 % (95-100); ABG PCO2 66.2 MM HG (35-48); ABG PH 7.308 (7.35-7.45); ABG TCO2 29.8 MMOL/L (23-27); Allen Test Positive
[2019-08-06] MEDS: cefTRIAXone 1,000 MG in SYRINGE 1 EACH IV SCH (13:42)
[2019-08-06] MEDS: PRAMIPEXOLE 0.25 MG TABLET PO SCH (22:31)
[2019-08-06] MEDS: SERTRALINE 25 MG TABLET PO SCH (22:31)
[2019-08-06] MEDS: QUEtiapine 25 MG TABLET PO SCH (22:33)
[2019-08-06] MEDS: DONEPEZIL 10 MG TABLET PO SCH (22:33)
[2019-08-07] MEDS: ALBUTEROL/IPRATROPIUM 3 ML NEB RESP TX SCH ×4 (01:52→19:34)
[2019-08-07 03:48] LABS: Basophils % 0.2 % (0.0-0.8); Hemoglobin 10.5 GM/DL (14.0-18.0); Immature Granulocytes % 1.5 %; Immature Granulocytes Absolute 0.28 #; Lymphocytes # 0.5 10*3/uL (1.4-4.0); Lymphocytes % 2.4 % (21.2-54.2); Mean Platelet Volume 12.2 FL (9.6-12.0); Monocytes % 2.5 % (1.7-12.7); Neutrophils % 93.4 % (38.7-73.9); Platelet Count 157 T/CUMM (130-400); Red Cell Distribution Width 12.8 % (9.3-17.3)
[2019-08-07 04:00] LABS: Osmolality,Calculated 301.3 MOS/KG (273-304)
[2019-08-07 04:39] LABS: Band Neutrophils 1 % (0-10); Lymphocytes 1 % (20-55); Platelet Estimate Normal; Segmented Neutrophils 97 % (50-85); Total Cells Counted 100
[2019-08-07 04:42] LABS: Macrocytosis Slight; Polychromasia Slight
[2019-08-07] MEDS: methylPREDNISolone SOD SUC 40 MG/1 ML VIAL IV SCH ×3 (05:52→22:41)
[2019-08-07] MEDS: FUROSEMIDE 20 MG/2 ML VIAL IV SCH ×2 (09:20→16:49)
[2019-08-07] MEDS: CYANOCOBALAMIN 500 MCG TABLET PO SCH (09:21)
[2019-08-07] MEDS: minoxidiL 2.5 MG TABLET PO SCH ×2 (09:22→22:37)
[2019-08-07] MEDS: BISOPROLOL 5 MG TABLET PO SCH ×2 (09:22→22:41)
[2019-08-07] MEDS: MAGNESIUM OXIDE 400 MG TABLET PO SCH (09:22)
[2019-08-07] MEDS: OXYBUTYNIN XL 10 MG TABLET PO SCH (09:22)
[2019-08-07] MEDS: LORATADINE 10 MG TABLET PO SCH (09:22)
[2019-08-07] MEDS: ROSUVASTATIN 20 MG TABLET PO SCH (09:22)
[2019-08-07] MEDS: cloNIDine 0.1 MG TABLET PO SCH (09:23)
[2019-08-07] MEDS: ASPIRIN EC 81 MG TABLET PO SCH (09:23)
[2019-08-07] MEDS: DUTASTERIDE 0.5 MG CAPSULE PO SCH (09:23)
[2019-08-07] MEDS: INSULIN REGULAR 100 UNIT/ML SUBCUT SCH ×4 (09:29→22:39)
[2019-08-07] MEDS: cefTRIAXone 1,000 MG in SYRINGE 1 EACH IV SCH (13:46)
[2019-08-07] MEDS: DONEPEZIL 10 MG TABLET PO SCH (22:36)
[2019-08-07] MEDS: PRAMIPEXOLE 0.25 MG TABLET PO SCH (22:36)
[2019-08-07] MEDS: SERTRALINE 25 MG TABLET PO SCH (22:36)
[2019-08-07] MEDS: QUEtiapine 25 MG TABLET PO SCH (22:38)
[2019-08-08] MEDS: ALBUTEROL/IPRATROPIUM 3 ML NEB RESP TX SCH ×4 (01:08→19:25)
[2019-08-08] MEDS: methylPREDNISolone SOD SUC 40 MG/1 ML VIAL IV SCH ×3 (05:08→21:42)
[2019-08-08 06:49] LABS: Basophils % 0.1 % (0.0-0.8); Hematocrit 36.3 VOL% (42.0-52.0); Hemoglobin 10.9 GM/DL (14.0-18.0); Immature Granulocytes % 1.3 %; Immature Granulocytes Absolute 0.25 #; Lymphocytes # 0.4 10*3/uL (1.4-4.0); Mean Corpuscular Volume 98.6 FL (87-102); Mean Platelet Volume 12.5 FL (9.6-12.0); Monocytes % 2.6 % (1.7-12.7); Platelet Count 159 T/CUMM (130-400); Red Blood Count 3.68 MC/CUMM (3.8-5.5); Red Cell Distribution Width 12.7 % (9.3-17.3); White Blood Count 19.1 T/CUMM (4-12)
[2019-08-08 07:14] LABS: Calcium 9.3 MG/DL (8.5-10.1); Osmolality,Calculated 307.3 MOS/KG (273-304)
[2019-08-08 07:17] LABS: Hypochromasia 1+; Lymphocytes 2 % (20-55); Macrocytosis Slight; Platelet Estimate Adequate; Segmented Neutrophils 95 % (50-85); Total Cells Counted 100
[2019-08-08] MEDS ORDERED: ALUM/MAG/SIMETH/LIDO VISC 1:1 30 ML BOTTLE PO ONE (09:31)
[2019-08-08] MEDS: MAGNESIUM OXIDE 400 MG TABLET PO SCH (09:59)
[2019-08-08] MEDS: DUTASTERIDE 0.5 MG CAPSULE PO SCH (09:59)
[2019-08-08] MEDS: BISOPROLOL 5 MG TABLET PO SCH ×2 (09:59→21:42)
[2019-08-08] MEDS: CYANOCOBALAMIN 500 MCG TABLET PO SCH (10:00)
[2019-08-08] MEDS: ASPIRIN EC 81 MG TABLET PO SCH (10:00)
[2019-08-08] MEDS: cloNIDine 0.1 MG TABLET PO SCH (10:00)
[2019-08-08] MEDS: OXYBUTYNIN XL 10 MG TABLET PO SCH (10:00)
[2019-08-08] MEDS: LORATADINE 10 MG TABLET PO SCH (10:00)
[2019-08-08] MEDS: minoxidiL 2.5 MG TABLET PO SCH (10:00)
[2019-08-08] MEDS: ROSUVASTATIN 20 MG TABLET PO SCH (10:00)
[2019-08-08] MEDS: FUROSEMIDE 20 MG/2 ML VIAL IV SCH (10:02)
[2019-08-08] MEDS: INSULIN REGULAR 100 UNIT/ML SUBCUT SCH ×4 (10:12→21:46)
[2019-08-08] MEDS ORDERED: ALBUTEROL/IPRATROPIUM 3 ML NEB RESP TX PRN (10:29)
[2019-08-08] MEDS ORDERED: FUROSEMIDE 40 MG/4 ML VIAL IV ONE ×2 (12:07→15:23)
[2019-08-08] MEDS: cefTRIAXone 1,000 MG in SYRINGE 1 EACH IV SCH (14:46)
[2019-08-08] MEDS: FUROSEMIDE 40 MG/4 ML VIAL IV SCH (17:59)
[2019-08-08] MEDS: SERTRALINE 25 MG TABLET PO SCH (21:41)
[2019-08-08] MEDS: QUEtiapine 25 MG TABLET PO SCH (21:41)
[2019-08-08] MEDS: PRAMIPEXOLE 0.25 MG TABLET PO SCH (21:42)
[2019-08-08] MEDS: DONEPEZIL 10 MG TABLET PO SCH (21:42)
[2019-08-09] MEDS: ALBUTEROL/IPRATROPIUM 3 ML NEB RESP TX SCH ×4 (01:57→19:46)
[2019-08-09] MEDS: methylPREDNISolone SOD SUC 40 MG/1 ML VIAL IV SCH ×3 (06:05→21:04)
[2019-08-09 06:39] LABS: Basophils % 0.1 % (0.0-0.8); Hematocrit 34.4 VOL% (42.0-52.0); Hemoglobin 10.8 GM/DL (14.0-18.0); Immature Granulocytes Absolute 0.17 #; Lymphocytes # 0.4 10*3/uL (1.4-4.0); Lymphocytes % 2.7 % (21.2-54.2); Mean Corpuscular HGB Conc 31.4 GM/DL (32-36); Mean Corpuscular Volume 94.8 FL (87-102); Mean Platelet Volume 12.7 FL (9.6-12.0); Monocytes % 4.7 % (1.7-12.7); Neutrophils % 91.5 % (38.7-73.9); Platelet Count 117 T/CUMM (130-400); Red Blood Count 3.63 MC/CUMM (3.8-5.5); Red Cell Distribution Width 12.8 % (9.3-17.3); White Blood Count 16.2 T/CUMM (4-12)
[2019-08-09 07:02] LABS: Calcium 8.9 MG/DL (8.5-10.1); Hypochromasia 1+; Lymphocytes 1 % (20-55); Microcytosis 1+; Osmolality,Calculated 306.4 MOS/KG (273-304); Platelet Estimate Decreased; Segmented Neutrophils 94 % (50-85); Total Cells Counted 100
[2019-08-09] MEDS: FUROSEMIDE 40 MG/4 ML VIAL IV SCH ×2 (10:08→15:57)
[2019-08-09] MEDS: INSULIN REGULAR 100 UNIT/ML SUBCUT SCH ×4 (10:08→21:06)
[2019-08-09] MEDS: MAGNESIUM OXIDE 400 MG TABLET PO SCH (10:09)
[2019-08-09] MEDS: DUTASTERIDE 0.5 MG CAPSULE PO SCH (10:09)
[2019-08-09] MEDS: cloNIDine 0.1 MG TABLET PO SCH (10:09)
[2019-08-09] MEDS: BISOPROLOL 5 MG TABLET PO SCH ×2 (10:09→21:04)
[2019-08-09] MEDS: ASPIRIN EC 81 MG TABLET PO SCH (10:10)
[2019-08-09] MEDS: CYANOCOBALAMIN 500 MCG TABLET PO SCH (10:10)
[2019-08-09] MEDS: ROSUVASTATIN 20 MG TABLET PO SCH (10:10)
[2019-08-09] MEDS: OXYBUTYNIN XL 10 MG TABLET PO SCH (10:13)
[2019-08-09] MEDS: LORATADINE 10 MG TABLET PO SCH (10:13)
[2019-08-09] MEDS: cefTRIAXone 1,000 MG in SYRINGE 1 EACH IV SCH (16:01)
[2019-08-09] MEDS: QUEtiapine 25 MG TABLET PO SCH (21:04)
[2019-08-09] MEDS: SERTRALINE 25 MG TABLET PO SCH (21:04)
[2019-08-09] MEDS: PRAMIPEXOLE 0.25 MG TABLET PO SCH (21:04)
[2019-08-09] MEDS: DONEPEZIL 10 MG TABLET PO SCH (21:04)
[2019-08-10] MEDS: ALBUTEROL/IPRATROPIUM 3 ML NEB RESP TX SCH ×4 (01:23→19:16)
[2019-08-10] MEDS: methylPREDNISolone SOD SUC 40 MG/1 ML VIAL IV SCH ×3 (05:45→21:54)
[2019-08-10 06:17] LABS: Basophils % 0.1 % (0.0-0.8); Hematocrit 34.7 VOL% (42.0-52.0); Hemoglobin 11.2 GM/DL (14.0-18.0); Immature Granulocytes % 0.8 %; Immature Granulocytes Absolute 0.15 #; Lymphocytes # 0.3 10*3/uL (1.4-4.0); Lymphocytes % 1.7 % (21.2-54.2); Mean Corpuscular HGB Conc 32.3 GM/DL (32-36); Mean Platelet Volume 13.2 FL (9.6-12.0); Monocytes % 3.1 % (1.7-12.7); Neutrophils % 94.3 % (38.7-73.9); Platelet Count 108 T/CUMM (130-400); Red Blood Count 3.69 MC/CUMM (3.8-5.5); Red Cell Distribution Width 12.8 % (9.3-17.3); White Blood Count 18.2 T/CUMM (4-12)
[2019-08-10 06:43] LABS: Albumin 3.1 G/DL (3.4-5.0); Bilirubin,Total 0.8 MG/DL (0.2-1.0); Osmolality,Calculated 309.1 MOS/KG (273-304); Total Protein 7.2 G/DL (6.4-8.3)
[2019-08-10 06:55] LABS: Hypochromasia 1+; Lymphocytes 3 % (20-55); Microcytosis 1+; Platelet Estimate Decreased; Segmented Neutrophils 95 % (50-85); Total Cells Counted 100
[2019-08-10] MEDS: FUROSEMIDE 40 MG/4 ML VIAL IV SCH ×2 (08:45→15:03)
[2019-08-10] MEDS: DUTASTERIDE 0.5 MG CAPSULE PO SCH (08:45)
[2019-08-10] MEDS: MAGNESIUM OXIDE 400 MG TABLET PO SCH (08:46)
[2019-08-10] MEDS: BISOPROLOL 5 MG TABLET PO SCH ×2 (08:46→21:57)
[2019-08-10] MEDS: OXYBUTYNIN XL 10 MG TABLET PO SCH (08:46)
[2019-08-10] MEDS: ASPIRIN EC 81 MG TABLET PO SCH (08:46)
[2019-08-10] MEDS: LORATADINE 10 MG TABLET PO SCH (08:46)
[2019-08-10] MEDS: ROSUVASTATIN 20 MG TABLET PO SCH (08:46)
[2019-08-10] MEDS: cloNIDine 0.1 MG TABLET PO SCH (08:46)
[2019-08-10] MEDS: CYANOCOBALAMIN 500 MCG TABLET PO SCH (08:46)
[2019-08-10] MEDS: INSULIN REGULAR 100 UNIT/ML SUBCUT SCH ×4 (08:53→22:00)
[2019-08-10] MEDS: minoxidiL 2.5 MG TABLET PO SCH ×2 (11:42→21:58)
[2019-08-10] MEDS ORDERED: BISACODYL 5 MG TABLET PO ONE (12:39)
[2019-08-10] MEDS: cefTRIAXone 1,000 MG in SYRINGE 1 EACH IV SCH (15:03)
[2019-08-10] MEDS: SERTRALINE 25 MG TABLET PO SCH (21:57)
[2019-08-10] MEDS: QUEtiapine 25 MG TABLET PO SCH (21:58)
[2019-08-10] MEDS: PRAMIPEXOLE 0.25 MG TABLET PO SCH (21:59)
[2019-08-10] MEDS: DONEPEZIL 10 MG TABLET PO SCH (21:59)
[2019-08-11] MEDS: ALBUTEROL/IPRATROPIUM 3 ML NEB RESP TX SCH ×4 (01:35→19:35)
[2019-08-11 06:13] LABS: Basophils % 0.1 % (0.0-0.8); Hematocrit 37.4 VOL% (42.0-52.0); Hemoglobin 11.9 GM/DL (14.0-18.0); Immature Granulocytes % 0.6 %; Immature Granulocytes Absolute 0.13 #; Lymphocytes # 0.3 10*3/uL (1.4-4.0); Lymphocytes % 1.6 % (21.2-54.2); Mean Corpuscular HGB Conc 31.8 GM/DL (32-36); Mean Corpuscular Volume 93.7 FL (87-102); Mean Platelet Volume 13.1 FL (9.6-12.0); Neutrophils % 94.7 % (38.7-73.9); Platelet Count 108 T/CUMM (130-400); Red Blood Count 3.99 MC/CUMM (3.8-5.5); Red Cell Distribution Width 12.6 % (9.3-17.3); White Blood Count 20.4 T/CUMM (4-12)
[2019-08-11] MEDS: methylPREDNISolone SOD SUC 40 MG/1 ML VIAL IV SCH ×3 (06:27→21:57)
[2019-08-11 06:33] LABS: Calcium 9.2 MG/DL (8.5-10.1); Osmolality,Calculated 308.3 MOS/KG (273-304)
[2019-08-11 06:53] LABS: Band Neutrophils 3 % (0-10); Hypochromasia 2+; Lymphocytes 1 % (20-55); Platelet Estimate Normal; Segmented Neutrophils 93 % (50-85); Total Cells Counted 100
[2019-08-11] MEDS: MAGNESIUM OXIDE 400 MG TABLET PO SCH (09:14)
[2019-08-11] MEDS: OXYBUTYNIN XL 10 MG TABLET PO SCH (09:14)
[2019-08-11] MEDS: minoxidiL 2.5 MG TABLET PO SCH ×2 (09:14→22:00)
[2019-08-11] MEDS: cloNIDine 0.1 MG TABLET PO SCH (09:14)
[2019-08-11] MEDS: ASPIRIN EC 81 MG TABLET PO SCH (09:14)
[2019-08-11] MEDS: BISOPROLOL 5 MG TABLET PO SCH ×2 (09:14→22:02)
[2019-08-11] MEDS: DUTASTERIDE 0.5 MG CAPSULE PO SCH (09:14)
[2019-08-11] MEDS: ROSUVASTATIN 20 MG TABLET PO SCH (09:14)
[2019-08-11] MEDS: LORATADINE 10 MG TABLET PO SCH (09:15)
[2019-08-11] MEDS: CYANOCOBALAMIN 500 MCG TABLET PO SCH (09:15)
[2019-08-11] MEDS: FUROSEMIDE 40 MG/4 ML VIAL IV SCH ×2 (09:21→15:49)
[2019-08-11] MEDS: INSULIN REGULAR 100 UNIT/ML SUBCUT SCH ×4 (09:21→22:04)
[2019-08-11] MEDS ORDERED: ENOXAPARIN 40 MG/0.4 ML SYRINGE SUBCUT SCH (09:30)
[2019-08-11] MEDS: OXYMETAZOLINE 0.05% NASAL SPRAY 15 ML BOTTLE BOTH NARES SCH ×2 (10:32→22:05)
[2019-08-11] MEDS: cefTRIAXone 1,000 MG in SYRINGE 1 EACH IV SCH (15:33)
[2019-08-11] MEDS: SERTRALINE 25 MG TABLET PO SCH (22:00)
[2019-08-11] MEDS: QUEtiapine 25 MG TABLET PO SCH (22:00)
[2019-08-11] MEDS: PRAMIPEXOLE 0.25 MG TABLET PO SCH (22:02)
[2019-08-11] MEDS: DONEPEZIL 10 MG TABLET PO SCH (22:02)
[2019-08-12] MEDS: ALBUTEROL/IPRATROPIUM 3 ML NEB RESP TX SCH ×4 (00:02→19:27)
[2019-08-12] MEDS: methylPREDNISolone SOD SUC 40 MG/1 ML VIAL IV SCH ×3 (05:46→21:40)
[2019-08-12 05:47] LABS: Basophils % 0.1 % (0.0-0.8); Hematocrit 37.7 VOL% (42.0-52.0); Hemoglobin 12.3 GM/DL (14.0-18.0); Immature Granulocytes % 0.7 %; Immature Granulocytes Absolute 0.16 #; Lymphocytes # 0.3 10*3/uL (1.4-4.0); Lymphocytes % 1.5 % (21.2-54.2); Mean Corpuscular HGB Conc 32.6 GM/DL (32-36); Mean Corpuscular Volume 93.1 FL (87-102); Mean Platelet Volume 13.9 FL (9.6-12.0); Monocytes % 2.5 % (1.7-12.7); Neutrophils % 95.2 % (38.7-73.9); Platelet Count 120 T/CUMM (130-400); Red Blood Count 4.05 MC/CUMM (3.8-5.5); Red Cell Distribution Width 12.6 % (9.3-17.3)
[2019-08-12 06:10] LABS: Osmolality,Calculated 307.4 MOS/KG (273-304)
[2019-08-12 06:24] LABS: Hypochromasia 1+; Lymphocytes 5 % (20-55); Microcytosis Slight; Platelet Estimate Decreased; Segmented Neutrophils 92 % (50-85); Total Cells Counted 100
[2019-08-12] MEDS: INSULIN REGULAR 100 UNIT/ML SUBCUT SCH ×4 (09:06→21:39)
[2019-08-12] MEDS: FUROSEMIDE 40 MG/4 ML VIAL IV SCH ×2 (09:06→16:07)
[2019-08-12] MEDS: LORATADINE 10 MG TABLET PO SCH (09:07)
[2019-08-12] MEDS: ROSUVASTATIN 20 MG TABLET PO SCH (09:07)
[2019-08-12] MEDS: DUTASTERIDE 0.5 MG CAPSULE PO SCH (09:07)
[2019-08-12] MEDS: OXYMETAZOLINE 0.05% NASAL SPRAY 15 ML BOTTLE BOTH NARES SCH ×2 (09:07→21:36)
[2019-08-12] MEDS: BISOPROLOL 5 MG TABLET PO SCH ×2 (09:07→21:45)
[2019-08-12] MEDS: CYANOCOBALAMIN 500 MCG TABLET PO SCH (09:07)
[2019-08-12] MEDS: MAGNESIUM OXIDE 400 MG TABLET PO SCH (09:08)
[2019-08-12] MEDS: OXYBUTYNIN XL 10 MG TABLET PO SCH (09:08)
[2019-08-12] MEDS: minoxidiL 2.5 MG TABLET PO SCH ×2 (09:08→21:36)
[2019-08-12] MEDS: cloNIDine 0.1 MG TABLET PO SCH (09:08)
[2019-08-12] MEDS: ASPIRIN EC 81 MG TABLET PO SCH (09:08)
[2019-08-12] MEDS: cefTRIAXone 1,000 MG in SYRINGE 1 EACH IV SCH (16:06)
[2019-08-12] MEDS: QUEtiapine 25 MG TABLET PO SCH (21:36)
[2019-08-12] MEDS: DONEPEZIL 10 MG TABLET PO SCH (21:36)
[2019-08-12] MEDS: PRAMIPEXOLE 0.25 MG TABLET PO SCH (21:37)
[2019-08-12] MEDS: SERTRALINE 25 MG TABLET PO SCH (21:37)
[2019-08-13] MEDS: ALBUTEROL/IPRATROPIUM 3 ML NEB RESP TX SCH ×4 (00:50→19:40)
[2019-08-13 05:21] LABS: Basophils % 0.1 % (0.0-0.8); Eosinophils % 0.1 % (0.00-10.9); Hematocrit 38.4 VOL% (42.0-52.0); Immature Granulocytes % 0.9 %; Immature Granulocytes Absolute 0.17 #; Lymphocytes # 0.4 10*3/uL (1.4-4.0); Mean Corpuscular HGB Conc 31.3 GM/DL (32-36); Mean Corpuscular Volume 94.3 FL (87-102); Mean Platelet Volume 13.9 FL (9.6-12.0); Monocytes % 2.9 % (1.7-12.7); Platelet Count 119 T/CUMM (130-400); Red Blood Count 4.07 MC/CUMM (3.8-5.5); Red Cell Distribution Width 12.5 % (9.3-17.3); White Blood Count 19.6 T/CUMM (4-12)
[2019-08-13] MEDS: methylPREDNISolone SOD SUC 40 MG/1 ML VIAL IV SCH ×2 (05:27→13:52)
[2019-08-13 05:44] LABS: Lymphocytes 3 % (20-55); Segmented Neutrophils 95 % (50-85); Total Cells Counted 100
[2019-08-13 05:45] LABS: Hypochromasia 1+; Microcytosis Slight
[2019-08-13 05:46] LABS: Platelet Estimate Adequate
[2019-08-13 06:17] LABS: Osmolality,Calculated 296.8 MOS/KG (273-304)
[2019-08-13] MEDS: INSULIN REGULAR 100 UNIT/ML SUBCUT SCH ×4 (09:44→20:56)
[2019-08-13] MEDS: FUROSEMIDE 40 MG/4 ML VIAL IV SCH ×2 (09:44→16:33)
[2019-08-13] MEDS: BISOPROLOL 5 MG TABLET PO SCH ×2 (09:45→20:56)
[2019-08-13] MEDS: CYANOCOBALAMIN 500 MCG TABLET PO SCH (09:45)
[2019-08-13] MEDS: ASPIRIN EC 81 MG TABLET PO SCH (09:45)
[2019-08-13] MEDS: MAGNESIUM OXIDE 400 MG TABLET PO SCH (09:45)
[2019-08-13] MEDS: LORATADINE 10 MG TABLET PO SCH (09:45)
[2019-08-13] MEDS: OXYBUTYNIN XL 10 MG TABLET PO SCH (09:45)
[2019-08-13] MEDS: ROSUVASTATIN 20 MG TABLET PO SCH (09:45)
[2019-08-13] MEDS: minoxidiL 2.5 MG TABLET PO SCH ×2 (09:45→21:05)
[2019-08-13] MEDS: DUTASTERIDE 0.5 MG CAPSULE PO SCH (09:45)
[2019-08-13] MEDS: cloNIDine 0.1 MG TABLET PO SCH (09:45)
[2019-08-13] MEDS: OXYMETAZOLINE 0.05% NASAL SPRAY 15 ML BOTTLE BOTH NARES SCH ×2 (09:45→20:56)
[2019-08-13] MEDS: AZITHROMYCIN 250 MG TABLET PO SCH (14:10)
[2019-08-13] MEDS: methylPREDNISolone SOD SUC INJ 500 MG in SODIUM CHLORIDE 0.9% 100 ML IV SCH ×2 (14:13→21:01)
[2019-08-13] MEDS: QUEtiapine 25 MG TABLET PO SCH (20:55)
[2019-08-13] MEDS: SERTRALINE 25 MG TABLET PO SCH (20:55)
[2019-08-13] MEDS: PRAMIPEXOLE 0.25 MG TABLET PO SCH (20:55)
[2019-08-13] MEDS: DONEPEZIL 10 MG TABLET PO SCH (20:56)
[2019-08-14] MEDS: INSULIN LISPRO 100 UNIT/ML SUBCUT SCH ×6 (00:10→21:15)
[2019-08-14] MEDS: ALBUTEROL/IPRATROPIUM 3 ML NEB RESP TX SCH ×4 (00:18→19:37)
[2019-08-14] MEDS: FUROSEMIDE 40 MG/4 ML VIAL IV SCH ×2 (10:03→17:55)
[2019-08-14] MEDS: LORATADINE 10 MG TABLET PO SCH (10:03)
[2019-08-14] MEDS: OXYBUTYNIN XL 10 MG TABLET PO SCH (10:03)
[2019-08-14] MEDS: AZITHROMYCIN 250 MG TABLET PO SCH (10:03)
[2019-08-14] MEDS: ASPIRIN EC 81 MG TABLET PO SCH (10:04)
[2019-08-14] MEDS: CYANOCOBALAMIN 500 MCG TABLET PO SCH (10:04)
[2019-08-14] MEDS: DUTASTERIDE 0.5 MG CAPSULE PO SCH (10:04)
[2019-08-14] MEDS: minoxidiL 2.5 MG TABLET PO SCH ×2 (10:04→21:14)
[2019-08-14] MEDS: OXYMETAZOLINE 0.05% NASAL SPRAY 15 ML BOTTLE BOTH NARES SCH ×2 (10:05→21:23)
[2019-08-14] MEDS: BISOPROLOL 5 MG TABLET PO SCH ×2 (10:05→21:14)
[2019-08-14] MEDS: cloNIDine 0.1 MG TABLET PO SCH (10:05)
[2019-08-14] MEDS: MAGNESIUM OXIDE 400 MG TABLET PO SCH (10:05)
[2019-08-14] MEDS: ROSUVASTATIN 20 MG TABLET PO SCH (10:05)
[2019-08-14] MEDS: methylPREDNISolone SOD SUC INJ 500 MG in SODIUM CHLORIDE 0.9% 100 ML IV SCH ×2 (10:06→21:22)
[2019-08-14] MEDS ORDERED: ALUMINUM/MAGNES/SIMETH MAX STR 30 ML UDCUP PO PRN (11:15)
[2019-08-14] MEDS ORDERED: INSULIN GLARGINE 100 UNIT/ML SUBCUT SCH (21:00)
[2019-08-14] MEDS: PRAMIPEXOLE 0.25 MG TABLET PO SCH (21:14)
[2019-08-14] MEDS: DONEPEZIL 10 MG TABLET PO SCH (21:15)
[2019-08-14] MEDS: SERTRALINE 25 MG TABLET PO SCH (21:15)
[2019-08-14] MEDS: QUEtiapine 25 MG TABLET PO SCH (21:15)
[2019-08-15] MEDS: ALBUTEROL/IPRATROPIUM 3 ML NEB RESP TX SCH ×3 (00:25→14:34)
[2019-08-15] MEDS: INSULIN LISPRO 100 UNIT/ML SUBCUT SCH ×5 (00:58→16:10)
[2019-08-15] MEDS ORDERED: BISACODYL 5 MG TABLET PO ONE (08:05)
[2019-08-15] MEDS: DUTASTERIDE 0.5 MG CAPSULE PO SCH (08:50)
[2019-08-15] MEDS: LORATADINE 10 MG TABLET PO SCH (08:50)
[2019-08-15] MEDS: MAGNESIUM OXIDE 400 MG TABLET PO SCH (08:50)
[2019-08-15] MEDS: AZITHROMYCIN 250 MG TABLET PO SCH (08:50)
[2019-08-15] MEDS: ROSUVASTATIN 20 MG TABLET PO SCH (08:50)
[2019-08-15] MEDS: CYANOCOBALAMIN 500 MCG TABLET PO SCH (08:50)
[2019-08-15] MEDS: cloNIDine 0.1 MG TABLET PO SCH (08:51)
[2019-08-15] MEDS: OXYBUTYNIN XL 10 MG TABLET PO SCH (08:51)
[2019-08-15] MEDS: BISOPROLOL 5 MG TABLET PO SCH (08:51)
[2019-08-15] MEDS: ASPIRIN EC 81 MG TABLET PO SCH (08:52)
[2019-08-15 09:04] LABS: Basophils % 0.1 % (0.0-0.8); Hematocrit 37.3 VOL% (42.0-52.0); Hemoglobin 12.2 GM/DL (14.0-18.0); Immature Granulocytes % 1.4 %; Immature Granulocytes Absolute 0.32 #; Lymphocytes # 0.3 10*3/uL (1.4-4.0); Lymphocytes % 1.3 % (21.2-54.2); Mean Corpuscular HGB Conc 32.7 GM/DL (32-36); Mean Corpuscular Volume 91.2 FL (87-102); Mean Platelet Volume 13.7 FL (9.6-12.0); Monocytes % 2.3 % (1.7-12.7); Neutrophils % 94.9 % (38.7-73.9); Platelet Count 134 T/CUMM (130-400); Red Blood Count 4.09 MC/CUMM (3.8-5.5); Red Cell Distribution Width 12.6 % (9.3-17.3); White Blood Count 23.4 T/CUMM (4-12)
[2019-08-15 09:20] LABS: Calcium 8.8 MG/DL (8.5-10.1); Osmolality,Calculated 294.1 MOS/KG (273-304)
[2019-08-15] MEDS: FUROSEMIDE 40 MG/4 ML VIAL IV SCH (09:47)
[2019-08-15 09:48] LABS: Band Neutrophils 2 % (0-10); Lymphocytes 2 % (20-55); Macrocytosis 1+; Platelet Estimate Adequate; Segmented Neutrophils 96 % (50-85); Total Cells Counted 100
[2019-08-15] MEDS: minoxidiL 2.5 MG TABLET PO SCH (09:50)
[2019-08-15] MEDS: methylPREDNISolone SOD SUC INJ 500 MG in SODIUM CHLORIDE 0.9% 100 ML IV SCH (09:55)
[2019-08-15] MEDS ORDERED: FUROSEMIDE 40 MG/4 ML VIAL IV ONE (10:04)
[2019-08-15] MEDS ORDERED: POTASSIUM CHLORIDE 20 MEQ/15 ML UDCUP PO ONE (15:44)
[2019-08-15] MEDS ORDERED: FUROSEMIDE 40 MG TABLET PO SCH (16:00)
[2019-08-15 16:11] VITALS: BP 151/72
[2019-08-15] MEDS ORDERED: BISACODYL 5 MG TABLET PO SCH (21:00)
== END 2019-08-15 16:18 | disposition hospice, home (50) | DRG 242 ==
LOC: EDBD → EDUNIT# → N.ED 14:15 → N.ICU 15:20 → SUATTDRO 15:38 → N.EDINP 15:38 → N.ICU 16:32 → N.TELES 08-03 16:29
PROVIDERS: ADMIT Internal Medicine Cardiovascular Disease; ATTEND Family Medicine

== ENCOUNTER 2019-08-26 23:04 | Inpatient (IN) ==
[2019-08-26] MEDS ORDERED: ONDANSETRON 4 MG/2 ML VIAL ONE (23:17)
[2019-08-26] MEDS ORDERED: FUROSEMIDE 40 MG/4 ML VIAL ONE (23:17)
[2019-08-26] MEDS ORDERED: MORPHINE 4 MG/1 ML VIAL ONE (23:18)
[2019-08-26] MEDS ORDERED: ONDANSETRON 4 MG/2 ML VIAL IV STA (23:20)
[2019-08-26] MEDS ORDERED: FUROSEMIDE 100 MG/10 ML VIAL IV STA (23:20)
[2019-08-26] MEDS ORDERED: NITROGLYCERIN 2% OINT 1 INCH/GM PACK TOP STA (23:20)
[2019-08-26] MEDS ORDERED: methylPREDNISolone SOD SUC 125 MG/2 ML VIAL IV STA (23:20)
[2019-08-26] MEDS ORDERED: MORPHINE 4 MG/1 ML VIAL IV STA (23:20)
[2019-08-26] MEDS ORDERED: ENOXAPARIN 100 MG/ML SYRINGE SUBCUT STA (23:26)
[2019-08-26 23:42] LABS: Basophils # 0.1 10*3/uL (0.0-0.2); Basophils % 0.2 % (0.0-0.8); Eosinophils # 0.1 10*3/uL (0.0-0.87); Eosinophils % 0.2 % (0.00-10.9); Hematocrit 33.8 VOL% (42.0-52.0); Hemoglobin 10.8 GM/DL (14.0-18.0); Immature Granulocytes % 3.1 %; Immature Granulocytes Absolute 1.15 #; Lymphocytes # 0.8 10*3/uL (1.4-4.0); Lymphocytes % 2.1 % (21.2-54.2); Mean Corpuscular Volume 92.1 FL (87-102); Mean Platelet Volume 12.8 FL (9.6-12.0); Monocytes % 3.3 % (1.7-12.7); Neutrophils % 91.1 % (38.7-73.9); Platelet Count 111 T/CUMM (130-400); Red Blood Count 3.67 MC/CUMM (3.8-5.5); Red Cell Distribution Width 13.6 % (9.3-17.3); White Blood Count 37.1 T/CUMM (4-12)
[2019-08-27] MEDS ORDERED: PIPERACILLIN/TAZOBACTAM 3,375 MG in SODIUM CHLORIDE 0.9% 100 ML IV STA
[2019-08-27 00:03] LABS: Albumin 2.9 G/DL (3.4-5.0); Bilirubin,Total 0.9 MG/DL (0.2-1.0); Calcium 8.8 MG/DL (8.5-10.1); Osmolality,Calculated 298.2 MOS/KG (273-304); Total Protein 7.2 G/DL (6.4-8.3)
[2019-08-27 00:04] LABS: CKMB % 9.8 %
[2019-08-27 00:05] LABS: Troponin I 2.5 NG/ML (0.00-0.045)
[2019-08-27] MEDS ORDERED: MORPHINE 4 MG/1 ML VIAL IV STA (00:10)
[2019-08-27 00:13] LABS: Apearance,Urine Slightly Hazy (Clear); Bacteria,Urine Occasional /HPF (Few); Bilirubin,Urine Negative (Negative); Blood, Urine Negative (Negative); Glucose,Urine (UA) >=500 mg/dL (Negative); Hyaline Casts,Urine 39 /LPF (0-3); Ketones,Urine Negative (Negative); Mucus,Urine Occasional /LPF (Occasional); Nitrite,Urine Negative (Negative); Protein,Urine 30 MG/DL; RBC,Urine <1 /HPF (0-4); Urine Color Yellow (Yellow); Urine Specific Gravity 1.016 (1.001-1.035); Urine Urobilinogen < 2.0 EU/DL (0.2-1.0); WBC,Urine 1 /HPF (0-6)
[2019-08-27] MEDS ORDERED: SODIUM BICARBONATE 50 MEQ/50 ML VIAL IV STA (00:17)
[2019-08-27] MEDS ORDERED: SODIUM CHLORIDE 0.9% 500 ML IV STA (00:17)
[2019-08-27] MEDS ORDERED: ACETYLCYSTEINE 600 MG CAPSULE PO STA (00:17)
[2019-08-27] MEDS ORDERED: INSULIN REGULAR 100 UNIT/ML IV STA (00:18)
[2019-08-27 00:25] LABS: ABG Base Excess 2.1 MMOL/L (-2.5-2.5); ABG HCO3 27.5 MMOL/L (20-26); ABG Oxygen Saturation 84.3 % (95-100); ABG PCO2 45.9 MM HG (35-48); ABG PH 7.395 (7.35-7.45); ABG PO2 53.7 MM HG (80-95); ABG TCO2 28.9 MMOL/L (23-27)
[2019-08-27 00:32] LABS: Ferritin 902.6 ng/ml (26-388)
[2019-08-27] MEDS ORDERED: ETOMIDATE 20 MG/10 ML VIAL IV ONE (00:43)
[2019-08-27] MEDS ORDERED: VECURONIUM 10 MG VIAL IV ONE (00:43)
[2019-08-27] MEDS ORDERED: HYDROmorphone 2 MG/1 ML VIAL ONE (01:00)
[2019-08-27] MEDS ORDERED: MIDAZOLAM 2 MG/2 ML VIAL ONE (01:01)
[2019-08-27] MEDS ORDERED: LIDOCAINE 1% 20 ML VIAL ONE (01:05)
[2019-08-27] MEDS ORDERED: TIROFIBAN 5,000 MCG/100 ML PREMIX IV ONE (01:30)
[2019-08-27] MEDS ORDERED: ASPIRIN CHEW 81 MG TABLET PO ONE (01:33)
[2019-08-27] MEDS: TIROFIBAN 5,000 MCG/100 ML PREMIX IV SCH ×2 (01:36→14:28)
[2019-08-27 01:47] LABS: Anisocytosis 1+; Band Neutrophils 2 % (0-10); Lymphocytes 5 % (20-55); Macrocytosis 1+; Platelet Estimate Decreased; Segmented Neutrophils 89 % (50-85); Total Cells Counted 100
[2019-08-27] MEDS ORDERED: TICAGRELOR 90 MG TABLET ONE (02:06)
[2019-08-27 03:19] LABS: Basophils % 0.1 % (0.0-0.8); Hematocrit 30.6 VOL% (42.0-52.0); Hemoglobin 9.8 GM/DL (14.0-18.0); Immature Granulocytes % 2.2 %; Immature Granulocytes Absolute 0.55 #; Lymphocytes # 0.2 10*3/uL (1.4-4.0); Lymphocytes % 0.8 % (21.2-54.2); Mean Corpuscular Volume 93.3 FL (87-102); Mean Platelet Volume 12.8 FL (9.6-12.0); Monocytes % 2.4 % (1.7-12.7); Neutrophils % 94.5 % (38.7-73.9); Platelet Count 78 T/CUMM (130-400); Red Blood Count 3.28 MC/CUMM (3.8-5.5); Red Cell Distribution Width 13.5 % (9.3-17.3); White Blood Count 24.7 T/CUMM (4-12)
[2019-08-27] MEDS ORDERED: SODIUM CHLORIDE 0.9% 1,000 ML IV SCH (03:30)
[2019-08-27 03:38] LABS: ABG Base Excess 5.4 MMOL/L (-2.5-2.5); ABG HCO3 29.8 MMOL/L (20-26); ABG PCO2 42.7 MM HG (35-48); ABG PH 7.462 (7.35-7.45); ABG TCO2 31.1 MMOL/L (23-27)
[2019-08-27 03:39] LABS: ABG Oxygen Saturation 99.8 % (95-100)
[2019-08-27 03:42] LABS: ABG PO2 335.4 MM HG (80-95)
[2019-08-27 04:00] LABS: CKMB % 8.5 %; Calcium 8.5 MG/DL (8.5-10.1); Osmolality,Calculated 298.8 MOS/KG (273-304)
[2019-08-27 04:24] LABS: Hypochromasia 1+; Lymphocytes 2 % (20-55); Platelet Estimate Decreased; Segmented Neutrophils 95 % (50-85); Total Cells Counted 100
[2019-08-27 04:25] LABS: Macrocytosis Slight
[2019-08-27] MEDS ORDERED: INSULIN REGULAR 100 UNIT/ML SUBCUT ONE (04:42)
[2019-08-27] MEDS: INSULIN REGULAR 100 UNIT/ML SUBCUT SCH ×3 (06:37→18:29)
[2019-08-27] MEDS: LEVOFLOXACIN INJ 750 MG in PREMIX 1 EACH IV SCH (06:38)
[2019-08-27] MEDS: PIPERACILLIN/TAZOBACTAM 3,375 MG in SODIUM CHLORIDE 0.9% 100 ML IV SCH ×2 (07:12→15:13)
[2019-08-27] MEDS: ASPIRIN CHEW 81 MG TABLET PO SCH (08:14)
[2019-08-27] MEDS: TICAGRELOR 90 MG TABLET PO SCH ×2 (08:15→21:11)
[2019-08-27] MEDS ORDERED: QUEtiapine 25 MG TABLET PO ONE (08:36)
[2019-08-27] MEDS: DEXMEDETOMIDINE 200 MCG in SODIUM CHLORIDE 0.9% 48 ML IV PRN ×3 (09:05→20:43)
[2019-08-27] MEDS ORDERED: ACETYLCYSTEINE 600 MG CAPSULE PO SCH (10:30)
[2019-08-27] MEDS: SODIUM CHLORIDE 0.9% 1,000 ML IV SCH (10:48)
[2019-08-27] MEDS ORDERED: ACETYLCYSTEINE 20% 800 MG/4 ML VIAL PO ONE (11:00)
[2019-08-27] MEDS: METOPROLOL TARTRATE 25 MG TABLET PO SCH ×2 (14:27→21:11)
[2019-08-27] MEDS ORDERED: FUROSEMIDE 40 MG/4 ML VIAL IV ONE (16:59)
[2019-08-27] MEDS ORDERED: AMIODARONE INJ 150 MG in DEXTROSE 5% 100 ML IV ONE (17:00)
[2019-08-27] MEDS: AMIODARONE INJ 450 MG in DEXTROSE 5% 241 ML IV SCH (17:40)
[2019-08-27 18:33] LABS: ABG Base Excess 9.5 MMOL/L (-2.5-2.5); ABG HCO3 33.3 MMOL/L (20-26); ABG PCO2 35.2 MM HG (35-48); ABG TCO2 29.8 MMOL/L (23-27); Allen Test Positive; Pt O2 Delivery Device Ventilator
[2019-08-27] MEDS: ROSUVASTATIN 20 MG TABLET PO SCH (21:11)
[2019-08-28] MEDS: INSULIN REGULAR 100 UNIT/ML SUBCUT SCH ×4 (00:27→17:55)
[2019-08-28] MEDS: PIPERACILLIN/TAZOBACTAM 3,375 MG in SODIUM CHLORIDE 0.9% 100 ML IV SCH ×2 (00:28→08:57)
[2019-08-28] MEDS: DEXMEDETOMIDINE 200 MCG in SODIUM CHLORIDE 0.9% 48 ML IV PRN ×5 (02:14→20:13)
[2019-08-28] MEDS: AMIODARONE INJ 450 MG in DEXTROSE 5% 241 ML IV SCH ×2 (02:14→09:44)
[2019-08-28 04:38] LABS: ABG Base Excess 8.3 MMOL/L (-2.5-2.5); ABG HCO3 32.1 MMOL/L (20-26); ABG Oxygen Saturation 99.5 % (95-100); ABG PCO2 44.2 MM HG (35-48); ABG PH 7.477 (7.35-7.45); ABG TCO2 30.5 MMOL/L (23-27); Allen Test Positive; Pt O2 Delivery Device Ventilator
[2019-08-28] MEDS ORDERED: MIDAZOLAM 2 MG/2 ML VIAL ONE (06:12)
[2019-08-28] MEDS ORDERED: MIDAZOLAM 2 MG/2 ML VIAL IV ONE (06:14)
[2019-08-28] MEDS: SODIUM CHLORIDE 0.9% 1,000 ML IV SCH (06:58)
[2019-08-28 07:33] LABS: Basophils % 0.2 % (0.0-0.8); Eosinophils # 0.1 10*3/uL (0.0-0.87); Eosinophils % 0.6 % (0.00-10.9); Hemoglobin 7.9 GM/DL (14.0-18.0); Immature Granulocytes % 1.1 %; Immature Granulocytes Absolute 0.14 #; Lymphocytes # 0.7 10*3/uL (1.4-4.0); Lymphocytes % 5.3 % (21.2-54.2); Mean Corpuscular HGB Conc 31.6 GM/DL (32-36); Mean Platelet Volume 12.6 FL (9.6-12.0); Monocytes % 2.6 % (1.7-12.7); Neutrophils % 90.2 % (38.7-73.9); Red Blood Count 2.66 MC/CUMM (3.8-5.5); Red Cell Distribution Width 13.9 % (9.3-17.3); White Blood Count 12.4 T/CUMM (4-12)
[2019-08-28 07:36] LABS: Platelet Count 51 T/CUMM (130-400)
[2019-08-28 08:02] LABS: Hypochromasia 1+; Microcytosis 1+; Platelet Estimate Decreased
[2019-08-28 08:20] LABS: Osmolality,Calculated 291.5 MOS/KG (273-304)
[2019-08-28] MEDS: ASPIRIN CHEW 81 MG TABLET PO SCH (08:58)
[2019-08-28] MEDS: TICAGRELOR 90 MG TABLET PO SCH ×2 (08:58→21:38)
[2019-08-28] MEDS: METOPROLOL TARTRATE 25 MG TABLET PO SCH ×3 (08:59→21:39)
[2019-08-28] MEDS: MEROPENEM 500 MG in SODIUM CHLORIDE 0.9% 100 ML IV SCH ×2 (09:30→15:51)
[2019-08-28] MEDS: FUROSEMIDE 40 MG/4 ML VIAL IV SCH ×2 (10:14→15:51)
[2019-08-28] MEDS: AMIODARONE 200 MG TABLET PO SCH ×2 (10:14→21:38)
[2019-08-28 16:29] LABS: Basophils % 0.1 % (0.0-0.8); Eosinophils # 0.1 10*3/uL (0.0-0.87); Eosinophils % 0.5 % (0.00-10.9); Hematocrit 24.3 VOL% (42.0-52.0); Hemoglobin 7.8 GM/DL (14.0-18.0); Immature Granulocytes Absolute 0.13 #; Lymphocytes # 0.6 10*3/uL (1.4-4.0); Lymphocytes % 4.8 % (21.2-54.2); Mean Corpuscular HGB Conc 32.1 GM/DL (32-36); Mean Corpuscular Volume 93.1 FL (87-102); Mean Platelet Volume 13.1 FL (9.6-12.0); Monocytes % 2.9 % (1.7-12.7); Neutrophils % 90.7 % (38.7-73.9); Red Blood Count 2.61 MC/CUMM (3.8-5.5); Red Cell Distribution Width 14.1 % (9.3-17.3); White Blood Count 12.5 T/CUMM (4-12)
[2019-08-28 16:32] LABS: Platelet Count 48 T/CUMM (130-400)
[2019-08-28 16:51] LABS: Eosinophils 1 % (0-10); Lymphocytes 5 % (20-55); Segmented Neutrophils 92 % (50-85); Total Cells Counted 100
[2019-08-28 16:52] LABS: Hypochromasia 1+; Microcytosis 1+
[2019-08-28 16:53] LABS: Platelet Estimate Decreased
[2019-08-28] MEDS: ROSUVASTATIN 20 MG TABLET PO SCH (21:38)
[2019-08-29] MEDS: INSULIN REGULAR 100 UNIT/ML SUBCUT SCH ×4 (00:20→17:36)
[2019-08-29] MEDS: DEXMEDETOMIDINE 200 MCG in SODIUM CHLORIDE 0.9% 48 ML IV PRN ×3 (00:21→08:00)
[2019-08-29] MEDS: MEROPENEM 500 MG in SODIUM CHLORIDE 0.9% 100 ML IV SCH ×3 (01:22→16:15)
[2019-08-29 03:05] LABS: Allen Test Positive; Pt O2 Delivery Device Ventilator
[2019-08-29 03:06] LABS: ABG Base Excess 10.2 MMOL/L (-2.5-2.5); ABG HCO3 33.5 MMOL/L (20-26); ABG Oxygen Saturation 96.7 % (95-100); ABG PCO2 39.8 MM HG (35-48); ABG PH 7.543 (7.35-7.45); ABG PO2 91.3 MM HG (80-95); ABG TCO2 34.7 MMOL/L (23-27)
[2019-08-29 04:30] LABS: Basophils % 0.1 % (0.0-0.8); Eosinophils # 0.2 10*3/uL (0.0-0.87); Eosinophils % 1.9 % (0.00-10.9); Hematocrit 23.9 VOL% (42.0-52.0); Hemoglobin 7.7 GM/DL (14.0-18.0); Immature Granulocytes % 1.1 %; Immature Granulocytes Absolute 0.12 #; Lymphocytes # 0.6 10*3/uL (1.4-4.0); Lymphocytes % 5.4 % (21.2-54.2); Mean Corpuscular HGB Conc 32.2 GM/DL (32-36); Mean Corpuscular Volume 91.9 FL (87-102); Mean Platelet Volume 12.9 FL (9.6-12.0); Monocytes % 2.4 % (1.7-12.7); Neutrophils % 89.1 % (38.7-73.9); Red Cell Distribution Width 14.1 % (9.3-17.3); White Blood Count 10.8 T/CUMM (4-12)
[2019-08-29 04:43] LABS: Calcium 7.8 MG/DL (8.5-10.1); Osmolality,Calculated 290.1 MOS/KG (273-304); Platelet Count 48 T/CUMM (130-400)
[2019-08-29 04:53] LABS: Hypochromasia 1+; Microcytosis 1+
[2019-08-29 04:54] LABS: Platelet Estimate Decreased
[2019-08-29] MEDS ORDERED: MAGNESIUM SULF RIDER 2 GM in PREMIX 1 EACH IV ONE (06:11)
[2019-08-29] MEDS: LEVOFLOXACIN INJ 750 MG in PREMIX 1 EACH IV SCH (06:30)
[2019-08-29] MEDS: POTASSIUM CHLORIDE 20 MEQ/15 ML UDCUP PER TUBE PRN ×5 (06:51→14:31)
[2019-08-29] MEDS: METOPROLOL TARTRATE 25 MG TABLET PO SCH ×2 (08:09→21:07)
[2019-08-29] MEDS: FUROSEMIDE 40 MG/4 ML VIAL IV SCH ×2 (08:09→16:48)
[2019-08-29] MEDS: TICAGRELOR 90 MG TABLET PO SCH ×2 (08:09→20:43)
[2019-08-29] MEDS: AMIODARONE 200 MG TABLET PO SCH ×2 (08:09→20:43)
[2019-08-29] MEDS: ASPIRIN CHEW 81 MG TABLET PO SCH (08:09)
[2019-08-29] MEDS ORDERED: DEXMEDETOMIDINE 200 MCG in SODIUM CHLORIDE 0.9% 98 ML IV PRN (08:30)
[2019-08-29] MEDS ORDERED: DEXMEDETOMIDINE 400 MCG in SODIUM CHLORIDE 0.9% 96 ML IV PRN (08:30)
[2019-08-29] MEDS: FONDAPARINUX 2.5 MG/0.5 ML SYRINGE SUBCUT SCH (09:56)
[2019-08-29] MEDS: FAMOTIDINE 20 MG/2 ML VIAL IV SCH ×2 (09:57→20:42)
[2019-08-29] MEDS: DEXMEDETOMIDINE 400 MCG in SODIUM CHLORIDE 0.9% 96 ML IV PRN ×3 (10:00→21:00)
[2019-08-29] MEDS: methylPREDNISolone SOD SUC 40 MG/1 ML VIAL IV SCH ×2 (10:15→16:48)
[2019-08-29] MEDS: ROSUVASTATIN 20 MG TABLET PO SCH (20:43)
[2019-08-29] MEDS: SERTRALINE 25 MG TABLET PO SCH (20:43)
[2019-08-29] MEDS: INSULIN GLARGINE 100 UNIT/ML SUBCUT SCH (20:51)
[2019-08-30] MEDS: INSULIN REGULAR 100 UNIT/ML SUBCUT SCH ×2 (00:10→05:40)
[2019-08-30] MEDS: MEROPENEM 500 MG in SODIUM CHLORIDE 0.9% 100 ML IV SCH ×3 (00:10→15:47)
[2019-08-30] MEDS: methylPREDNISolone SOD SUC 40 MG/1 ML VIAL IV SCH ×3 (00:11→16:35)
[2019-08-30] MEDS: DEXMEDETOMIDINE 400 MCG in SODIUM CHLORIDE 0.9% 96 ML IV PRN ×5 (02:00→21:35)
[2019-08-30 04:38] LABS: ABG Base Excess 6.8 MMOL/L (-2.5-2.5); ABG HCO3 30.3 MMOL/L (20-26); ABG Oxygen Saturation 96.8 % (95-100); ABG PCO2 38.6 MM HG (35-48); ABG PH 7.512 (7.35-7.45); ABG PO2 93.6 MM HG (80-95); ABG TCO2 31.4 MMOL/L (23-27)
[2019-08-30 05:22] LABS: Basophils % 0.1 % (0.0-0.8); Hematocrit 28.8 VOL% (42.0-52.0); Hemoglobin 9.3 GM/DL (14.0-18.0); Immature Granulocytes % 0.8 %; Immature Granulocytes Absolute 0.09 #; Lymphocytes # 0.2 10*3/uL (1.4-4.0); Lymphocytes % 2.1 % (21.2-54.2); Mean Corpuscular HGB Conc 32.3 GM/DL (32-36); Mean Corpuscular Volume 91.1 FL (87-102); Mean Platelet Volume 13.4 FL (9.6-12.0); Monocytes % 1.3 % (1.7-12.7); Neutrophils % 95.7 % (38.7-73.9); Platelet Count 60 T/CUMM (130-400); Red Blood Count 3.16 MC/CUMM (3.8-5.5); Red Cell Distribution Width 14.1 % (9.3-17.3); White Blood Count 11.2 T/CUMM (4-12)
[2019-08-30 05:46] LABS: Calcium 8.1 MG/DL (8.5-10.1); Osmolality,Calculated 297.4 MOS/KG (273-304)
[2019-08-30 05:49] LABS: Prealbumin 20.3 MG/DL (20-40)
[2019-08-30 05:57] LABS: Anisocytosis Slight; Band Neutrophils 5 % (0-10); Lymphocytes 3 % (20-55); Macrocytosis 1+; Platelet Estimate Decreased; Segmented Neutrophils 92 % (50-85); Total Cells Counted 100
[2019-08-30] MEDS: FUROSEMIDE 40 MG/4 ML VIAL IV SCH ×2 (08:33→15:47)
[2019-08-30] MEDS: FAMOTIDINE 20 MG/2 ML VIAL IV SCH (08:34)
[2019-08-30] MEDS: AMIODARONE 200 MG TABLET PO SCH ×2 (08:34→20:46)
[2019-08-30] MEDS: FONDAPARINUX 2.5 MG/0.5 ML SYRINGE SUBCUT SCH (08:34)
[2019-08-30] MEDS: ASPIRIN CHEW 81 MG TABLET PO SCH (08:34)
[2019-08-30] MEDS: METOPROLOL TARTRATE 25 MG TABLET PO SCH ×2 (08:34→20:46)
[2019-08-30] MEDS: TICAGRELOR 90 MG TABLET PO SCH ×2 (08:34→20:46)
[2019-08-30] MEDS: POTASSIUM CHLORIDE 20 MEQ/15 ML UDCUP PER TUBE PRN (08:35)
[2019-08-30] MEDS ORDERED: DEXTROSE 10% 250 ML BAG IV PRN (10:17)
[2019-08-30] MEDS ORDERED: GLUCAGON 1 MG VIAL IM PRN (10:17)
[2019-08-30] MEDS: INSULIN LISPRO 100 UNIT/ML SUBCUT SCH ×2 (11:52→17:31)
[2019-08-30] MEDS: SERTRALINE 25 MG TABLET PO SCH (20:46)
[2019-08-30] MEDS: ROSUVASTATIN 20 MG TABLET PO SCH (20:46)
[2019-08-30] MEDS: INSULIN GLARGINE 100 UNIT/ML SUBCUT SCH (20:46)
[2019-08-31] MEDS: INSULIN LISPRO 100 UNIT/ML SUBCUT SCH ×4 (00:46→17:30)
[2019-08-31] MEDS: MEROPENEM 500 MG in SODIUM CHLORIDE 0.9% 100 ML IV SCH ×3 (00:47→15:50)
[2019-08-31] MEDS: methylPREDNISolone SOD SUC 40 MG/1 ML VIAL IV SCH ×3 (00:47→15:45)
[2019-08-31] MEDS: DEXMEDETOMIDINE 400 MCG in SODIUM CHLORIDE 0.9% 96 ML IV PRN (02:53)
[2019-08-31 04:18] LABS: ABG Base Excess 6.3 MMOL/L (-2.5-2.5); ABG HCO3 30.1 MMOL/L (20-26); ABG Oxygen Saturation 98.3 % (95-100); ABG PCO2 40.9 MM HG (35-48); ABG PH 7.478 (7.35-7.45); ABG TCO2 27.8 MMOL/L (23-27); Allen Test Positive; Pt O2 Delivery Device Ventilator
[2019-08-31 05:06] LABS: Basophils % 0.1 % (0.0-0.8); Hematocrit 27.6 VOL% (42.0-52.0); Hemoglobin 8.9 GM/DL (14.0-18.0); Immature Granulocytes % 1.5 %; Immature Granulocytes Absolute 0.17 #; Lymphocytes # 0.3 10*3/uL (1.4-4.0); Lymphocytes % 2.5 % (21.2-54.2); Mean Corpuscular HGB Conc 32.2 GM/DL (32-36); Mean Corpuscular Volume 92.3 FL (87-102); Mean Platelet Volume 12.7 FL (9.6-12.0); Monocytes % 2.6 % (1.7-12.7); Neutrophils % 93.3 % (38.7-73.9); Platelet Count 69 T/CUMM (130-400); Red Blood Count 2.99 MC/CUMM (3.8-5.5); Red Cell Distribution Width 14.4 % (9.3-17.3); White Blood Count 11.6 T/CUMM (4-12)
[2019-08-31 05:13] LABS: Calcium 7.1 MG/DL (8.5-10.1); Osmolality,Calculated 308.1 MOS/KG (273-304)
[2019-08-31 05:43] LABS: Band Neutrophils 2 % (0-10); Hypochromasia Slight; Lymphocytes 6 % (20-55); Microcytosis 1+; Segmented Neutrophils 91 % (50-85); Total Cells Counted 100
[2019-08-31 05:44] LABS: Platelet Estimate Decreased; Polychromasia Slight
[2019-08-31] MEDS: METOPROLOL TARTRATE 25 MG TABLET PO SCH ×2 (07:45→22:08)
[2019-08-31] MEDS: ASPIRIN CHEW 81 MG TABLET PO SCH (07:45)
[2019-08-31] MEDS: FONDAPARINUX 2.5 MG/0.5 ML SYRINGE SUBCUT SCH (07:45)
[2019-08-31] MEDS: AMIODARONE 200 MG TABLET PO SCH ×2 (07:45→22:07)
[2019-08-31] MEDS: TICAGRELOR 90 MG TABLET PO SCH ×2 (07:45→22:07)
[2019-08-31] MEDS: FAMOTIDINE 20 MG/2 ML VIAL IV SCH (08:07)
[2019-08-31] MEDS: FUROSEMIDE 40 MG/4 ML VIAL IV SCH ×2 (08:10→15:45)
[2019-08-31] MEDS: VORICONAZOLE INJ 600 MG in SODIUM CHLORIDE 0.9% 250 ML IV SCH ×2 (11:10→22:14)
[2019-08-31] MEDS ORDERED: TEMAZEPAM 15 MG CAPSULE PO PRN (18:37)
[2019-08-31] MEDS: ROSUVASTATIN 20 MG TABLET PO SCH (22:07)
[2019-08-31] MEDS: minoxidiL 2.5 MG TABLET PO SCH (22:07)
[2019-08-31] MEDS: SERTRALINE 25 MG TABLET PO SCH (22:07)
[2019-08-31] MEDS: DONEPEZIL 10 MG TABLET PO SCH (22:08)
[2019-08-31] MEDS: QUEtiapine 25 MG TABLET PO SCH (22:08)
[2019-08-31] MEDS: INSULIN GLARGINE 100 UNIT/ML SUBCUT SCH (22:08)
[2019-09-01] MEDS: INSULIN LISPRO 100 UNIT/ML SUBCUT SCH ×4 (00:38→17:40)
[2019-09-01] MEDS: methylPREDNISolone SOD SUC 40 MG/1 ML VIAL IV SCH ×2 (01:08→10:43)
[2019-09-01] MEDS: MEROPENEM 500 MG in SODIUM CHLORIDE 0.9% 100 ML IV SCH ×3 (01:11→16:36)
[2019-09-01 06:24] LABS: Calcium 6.6 MG/DL (8.5-10.1); Osmolality,Calculated 301.3 MOS/KG (273-304)
[2019-09-01] MEDS ORDERED: POTASSIUM CHLORIDE 20 MEQ TABLET PO ONE (07:58)
[2019-09-01 08:26] LABS: Basophils % 0.1 % (0.0-0.8); Hematocrit 30.1 VOL% (42.0-52.0); Hemoglobin 9.6 GM/DL (14.0-18.0); Immature Granulocytes % 1.3 %; Immature Granulocytes Absolute 0.21 #; Lymphocytes # 0.3 10*3/uL (1.4-4.0); Lymphocytes % 1.7 % (21.2-54.2); Mean Corpuscular HGB Conc 31.9 GM/DL (32-36); Mean Corpuscular Volume 92.6 FL (87-102); Mean Platelet Volume 12.4 FL (9.6-12.0); Monocytes % 2.1 % (1.7-12.7); Neutrophils % 94.8 % (38.7-73.9); Platelet Count 70 T/CUMM (130-400); Red Blood Count 3.25 MC/CUMM (3.8-5.5); Red Cell Distribution Width 14.3 % (9.3-17.3); White Blood Count 15.9 T/CUMM (4-12)
[2019-09-01 08:57] LABS: Anisocytosis 1+; Band Neutrophils 11 % (0-10); Hypochromasia Slight; Lymphocytes 1 % (20-55); Platelet Estimate Decreased; Segmented Neutrophils 85 % (50-85); Total Cells Counted 100
[2019-09-01] MEDS: ASPIRIN CHEW 81 MG TABLET PO SCH (10:29)
[2019-09-01] MEDS: TICAGRELOR 90 MG TABLET PO SCH ×2 (10:29→21:43)
[2019-09-01] MEDS: FONDAPARINUX 2.5 MG/0.5 ML SYRINGE SUBCUT SCH (10:29)
[2019-09-01] MEDS: AMIODARONE 200 MG TABLET PO SCH ×2 (10:29→21:43)
[2019-09-01] MEDS: METOPROLOL TARTRATE 25 MG TABLET PO SCH (10:30)
[2019-09-01] MEDS: minoxidiL 2.5 MG TABLET PO SCH ×2 (10:30→21:43)
[2019-09-01] MEDS: VORICONAZOLE 50 MG TABLET PO SCH ×2 (10:31→21:42)
[2019-09-01] MEDS: FAMOTIDINE 20 MG/2 ML VIAL IV SCH (10:47)
[2019-09-01] MEDS: FUROSEMIDE 40 MG/4 ML VIAL IV SCH (10:50)
[2019-09-01] MEDS: FUROSEMIDE 40 MG TABLET PO SCH (16:30)
[2019-09-01] MEDS: INSULIN GLARGINE 100 UNIT/ML SUBCUT SCH (21:43)
[2019-09-01] MEDS: SERTRALINE 25 MG TABLET PO SCH (21:43)
[2019-09-01] MEDS: ROSUVASTATIN 20 MG TABLET PO SCH (21:43)
[2019-09-01] MEDS: DONEPEZIL 10 MG TABLET PO SCH (21:43)
[2019-09-01] MEDS: carvediloL 6.25 MG TABLET PO SCH (21:43)
[2019-09-01] MEDS: QUEtiapine 25 MG TABLET PO SCH (21:43)
[2019-09-01] MEDS ORDERED: methylPREDNISolone SOD SUC 40 MG/1 ML VIAL IV SCH (22:00)
[2019-09-02] MEDS: INSULIN LISPRO 100 UNIT/ML SUBCUT SCH ×4 (00:52→18:30)
[2019-09-02] MEDS: MEROPENEM 500 MG in SODIUM CHLORIDE 0.9% 100 ML IV SCH ×2 (00:53→09:51)
[2019-09-02 06:23] LABS: Basophils % 0.1 % (0.0-0.8); Hematocrit 27.1 VOL% (42.0-52.0); Hemoglobin 8.5 GM/DL (14.0-18.0); Immature Granulocytes % 1.8 %; Immature Granulocytes Absolute 0.19 #; Lymphocytes # 0.2 10*3/uL (1.4-4.0); Lymphocytes % 1.5 % (21.2-54.2); Mean Corpuscular HGB Conc 31.4 GM/DL (32-36); Mean Corpuscular Volume 92.5 FL (87-102); Mean Platelet Volume 13.4 FL (9.6-12.0); Monocytes % 2.8 % (1.7-12.7); Neutrophils % 93.8 % (38.7-73.9); Platelet Count 65 T/CUMM (130-400); Red Blood Count 2.93 MC/CUMM (3.8-5.5); Red Cell Distribution Width 13.9 % (9.3-17.3); White Blood Count 10.7 T/CUMM (4-12)
[2019-09-02 06:50] LABS: Calcium 6.6 MG/DL (8.5-10.1); Osmolality,Calculated 302.3 MOS/KG (273-304)
[2019-09-02 08:25] LABS: Band Neutrophils 1 % (0-10); Eosinophils 1 % (0-10); Hypochromasia 2+; Lymphocytes 2 % (20-55); Platelet Estimate Decreased; Segmented Neutrophils 95 % (50-85); Target Cells 1+; Total Cells Counted 100
[2019-09-02 08:26] LABS: Anisocytosis 1+; Macrocytosis 1+
[2019-09-02] MEDS: VORICONAZOLE 50 MG TABLET PO SCH ×2 (09:42→21:05)
[2019-09-02] MEDS: ASPIRIN CHEW 81 MG TABLET PO SCH (09:43)
[2019-09-02] MEDS: minoxidiL 2.5 MG TABLET PO SCH ×2 (09:43→21:04)
[2019-09-02] MEDS: POTASSIUM CHLORIDE 20 MEQ TABLET PO SCH (09:44)
[2019-09-02] MEDS: carvediloL 6.25 MG TABLET PO SCH ×2 (09:44→21:05)
[2019-09-02] MEDS: FAMOTIDINE 20 MG/2 ML VIAL IV SCH ×2 (09:44→11:01)
[2019-09-02] MEDS: TICAGRELOR 90 MG TABLET PO SCH ×2 (09:44→21:04)
[2019-09-02] MEDS: FUROSEMIDE 40 MG TABLET PO SCH ×2 (09:44→16:23)
[2019-09-02] MEDS: AMIODARONE 200 MG TABLET PO SCH ×2 (09:44→21:04)
[2019-09-02] MEDS: FONDAPARINUX 2.5 MG/0.5 ML SYRINGE SUBCUT SCH (09:45)
[2019-09-02] MEDS: predniSONE 20 MG TABLET PO SCH (10:25)
[2019-09-02] MEDS: FAMOTIDINE 20 MG TABLET PO SCH (10:25)
[2019-09-02] MEDS: CEFDINIR 300 MG CAPSULE PO SCH ×2 (11:00→21:05)
[2019-09-02] MEDS ORDERED: POTASSIUM CHLORIDE 20 MEQ TABLET PO ONE (12:14)
[2019-09-02] MEDS: INSULIN GLARGINE 100 UNIT/ML SUBCUT SCH (21:03)
[2019-09-02] MEDS: QUEtiapine 25 MG TABLET PO SCH (21:04)
[2019-09-02] MEDS: SERTRALINE 25 MG TABLET PO SCH (21:04)
[2019-09-02] MEDS: DONEPEZIL 10 MG TABLET PO SCH (21:04)
[2019-09-02] MEDS: ROSUVASTATIN 20 MG TABLET PO SCH (21:05)
[2019-09-03] MEDS: INSULIN LISPRO 100 UNIT/ML SUBCUT SCH ×4 (02:32→18:38)
[2019-09-03] MEDS: POTASSIUM CHLORIDE 20 MEQ TABLET PO SCH (09:18)
[2019-09-03] MEDS: CEFDINIR 300 MG CAPSULE PO SCH ×2 (09:19→21:29)
[2019-09-03] MEDS: FUROSEMIDE 40 MG TABLET PO SCH ×2 (09:19→16:48)
[2019-09-03] MEDS: minoxidiL 2.5 MG TABLET PO SCH ×2 (09:19→21:27)
[2019-09-03] MEDS: FAMOTIDINE 20 MG TABLET PO SCH (09:19)
[2019-09-03] MEDS: predniSONE 20 MG TABLET PO SCH (09:19)
[2019-09-03] MEDS: TICAGRELOR 90 MG TABLET PO SCH ×2 (09:19→21:28)
[2019-09-03] MEDS: ASPIRIN CHEW 81 MG TABLET PO SCH (09:19)
[2019-09-03] MEDS: carvediloL 6.25 MG TABLET PO SCH ×2 (09:20→21:29)
[2019-09-03] MEDS: FONDAPARINUX 2.5 MG/0.5 ML SYRINGE SUBCUT SCH (09:20)
[2019-09-03] MEDS: AMIODARONE 200 MG TABLET PO SCH ×2 (09:20→21:29)
[2019-09-03] MEDS: VORICONAZOLE 50 MG TABLET PO SCH ×2 (09:23→21:26)
[2019-09-03] MEDS ORDERED: FUROSEMIDE 40 MG/4 ML VIAL IV ONE (16:58)
[2019-09-03] MEDS: ALBUTEROL/IPRATROPIUM 3 ML NEB RESP TX PRN (17:00)
[2019-09-03] MEDS: DONEPEZIL 10 MG TABLET PO SCH (21:27)
[2019-09-03] MEDS: QUEtiapine 25 MG TABLET PO SCH (21:28)
[2019-09-03] MEDS: SERTRALINE 25 MG TABLET PO SCH (21:28)
[2019-09-03] MEDS: INSULIN GLARGINE 100 UNIT/ML SUBCUT SCH (21:29)
[2019-09-03] MEDS: ROSUVASTATIN 20 MG TABLET PO SCH (21:29)
[2019-09-04] MEDS: INSULIN LISPRO 100 UNIT/ML SUBCUT SCH ×4 (00:48→18:55)
[2019-09-04 05:44] LABS: Basophils % 0.1 % (0.0-0.8); Eosinophils # 0.1 10*3/uL (0.0-0.87); Eosinophils % 0.5 % (0.00-10.9); Hematocrit 23.9 VOL% (42.0-52.0); Hemoglobin 7.7 GM/DL (14.0-18.0); Immature Granulocytes % 2.1 %; Lymphocytes # 0.3 10*3/uL (1.4-4.0); Lymphocytes % 2.8 % (21.2-54.2); Mean Corpuscular HGB Conc 32.2 GM/DL (32-36); Mean Corpuscular Volume 91.6 FL (87-102); Mean Platelet Volume 13.5 FL (9.6-12.0); Monocytes % 3.3 % (1.7-12.7); Neutrophils % 91.2 % (38.7-73.9); Platelet Count 72 T/CUMM (130-400); Red Blood Count 2.61 MC/CUMM (3.8-5.5); Red Cell Distribution Width 13.7 % (9.3-17.3); White Blood Count 9.4 T/CUMM (4-12)
[2019-09-04 06:07] LABS: Calcium 7.2 MG/DL (8.5-10.1); Osmolality,Calculated 297.3 MOS/KG (273-304)
[2019-09-04 06:34] LABS: Anisocytosis 1+; Band Neutrophils 16 % (0-10); Eosinophils 1 % (0-10); Lymphocytes 1 % (20-55); Metamyelocytes 1 %; Platelet Estimate Decreased; Segmented Neutrophils 76 % (50-85); Total Cells Counted 100
[2019-09-04 06:35] LABS: Macrocytosis Slight
[2019-09-04] MEDS ORDERED: SODIUM CHLORIDE 0.9% 1,000 ML IV PRN (09:17)
[2019-09-04] MEDS ORDERED: FUROSEMIDE 40 MG/4 ML VIAL IV ONE (09:38)
[2019-09-04] MEDS: POTASSIUM CHLORIDE 20 MEQ TABLET PO SCH (10:01)
[2019-09-04] MEDS: FUROSEMIDE 40 MG TABLET PO SCH ×2 (10:02→17:24)
[2019-09-04] MEDS: FAMOTIDINE 20 MG TABLET PO SCH (10:02)
[2019-09-04] MEDS: minoxidiL 2.5 MG TABLET PO SCH ×2 (10:02→20:56)
[2019-09-04] MEDS: AMIODARONE 200 MG TABLET PO SCH ×2 (10:02→20:57)
[2019-09-04] MEDS: carvediloL 6.25 MG TABLET PO SCH ×2 (10:02→20:56)
[2019-09-04] MEDS: predniSONE 20 MG TABLET PO SCH (10:03)
[2019-09-04] MEDS: VORICONAZOLE 50 MG TABLET PO SCH ×2 (10:12→20:57)
[2019-09-04] MEDS: CEFDINIR 300 MG CAPSULE PO SCH ×2 (10:13→20:55)
[2019-09-04] MEDS: ASPIRIN CHEW 81 MG TABLET PO SCH (10:13)
[2019-09-04] MEDS: FONDAPARINUX 2.5 MG/0.5 ML SYRINGE SUBCUT SCH (10:14)
[2019-09-04] MEDS: TICAGRELOR 90 MG TABLET PO SCH (10:15)
[2019-09-04] MEDS ORDERED: FUROSEMIDE 40 MG/4 ML VIAL ONE (16:03)
[2019-09-04] MEDS: ALBUTEROL/IPRATROPIUM 3 ML NEB RESP TX PRN (17:12)
[2019-09-04] MEDS: SERTRALINE 25 MG TABLET PO SCH (20:55)
[2019-09-04] MEDS: ROSUVASTATIN 20 MG TABLET PO SCH (20:56)
[2019-09-04] MEDS: DONEPEZIL 10 MG TABLET PO SCH (20:57)
[2019-09-04] MEDS: QUEtiapine 25 MG TABLET PO SCH (20:57)
[2019-09-04 21:49] LABS: Hematocrit 29.2 VOL% (42.0-52.0); Hemoglobin 9.6 GM/DL (14.0-18.0)
[2019-09-04] MEDS: INSULIN GLARGINE 100 UNIT/ML SUBCUT SCH (22:08)
[2019-09-05] MEDS: INSULIN LISPRO 100 UNIT/ML SUBCUT SCH ×4 (00:18→18:26)
[2019-09-05 05:40] LABS: Basophils % 0.1 % (0.0-0.8); Eosinophils # 0.1 10*3/uL (0.0-0.87); Eosinophils % 0.9 % (0.00-10.9); Hematocrit 28.8 VOL% (42.0-52.0); Hemoglobin 9.4 GM/DL (14.0-18.0); Immature Granulocytes % 5.5 %; Immature Granulocytes Absolute 0.55 #; Lymphocytes # 0.4 10*3/uL (1.4-4.0); Mean Corpuscular HGB Conc 32.6 GM/DL (32-36); Mean Corpuscular Volume 88.3 FL (87-102); Mean Platelet Volume 11.7 FL (9.6-12.0); Monocytes % 4.9 % (1.7-12.7); Neutrophils % 84.6 % (38.7-73.9); Platelet Count 84 T/CUMM (130-400); Red Blood Count 3.26 MC/CUMM (3.8-5.5); Red Cell Distribution Width 15.3 % (9.3-17.3)
[2019-09-05 06:00] LABS: Calcium 7.3 MG/DL (8.5-10.1); Osmolality,Calculated 296.3 MOS/KG (273-304)
[2019-09-05 06:05] LABS: Band Neutrophils 1 % (0-10); Eosinophils 2 % (0-10); Lymphocytes 6 % (20-55); Platelet Estimate Decreased; Segmented Neutrophils 88 % (50-85); Total Cells Counted 100
[2019-09-05 06:06] LABS: Hypochromasia 1+; Microcytosis 1+
[2019-09-05] MEDS ORDERED: FUROSEMIDE 40 MG TABLET PO ONE (08:00)
[2019-09-05] MEDS: predniSONE 20 MG TABLET PO SCH (09:31)
[2019-09-05] MEDS: FUROSEMIDE 40 MG TABLET PO SCH (10:10)
[2019-09-05] MEDS: ASPIRIN CHEW 81 MG TABLET PO SCH (10:37)
[2019-09-05] MEDS: AMIODARONE 200 MG TABLET PO SCH ×2 (10:37→21:00)
[2019-09-05] MEDS: FAMOTIDINE 20 MG TABLET PO SCH (10:38)
[2019-09-05] MEDS: carvediloL 6.25 MG TABLET PO SCH ×2 (10:38→20:59)
[2019-09-05] MEDS: POTASSIUM CHLORIDE 20 MEQ TABLET PO SCH (10:38)
[2019-09-05] MEDS: methylPREDNISolone SOD SUC 40 MG/1 ML VIAL IV SCH ×2 (10:38→21:01)
[2019-09-05] MEDS: VORICONAZOLE 50 MG TABLET PO SCH (10:38)
[2019-09-05] MEDS: minoxidiL 2.5 MG TABLET PO SCH ×2 (10:38→20:59)
[2019-09-05] MEDS: CEFDINIR 300 MG CAPSULE PO SCH ×2 (10:38→21:00)
[2019-09-05] MEDS: FUROSEMIDE 40 MG/4 ML VIAL IV SCH (15:09)
[2019-09-05] MEDS: ROSUVASTATIN 20 MG TABLET PO SCH (20:58)
[2019-09-05] MEDS: VORICONAZOLE 200 MG TABLET PO SCH (20:58)
[2019-09-05] MEDS: SERTRALINE 25 MG TABLET PO SCH (20:59)
[2019-09-05] MEDS: QUEtiapine 25 MG TABLET PO SCH (21:00)
[2019-09-05] MEDS: INSULIN GLARGINE 100 UNIT/ML SUBCUT SCH (21:00)
[2019-09-05] MEDS: DONEPEZIL 10 MG TABLET PO SCH (21:00)
[2019-09-06] MEDS: INSULIN LISPRO 100 UNIT/ML SUBCUT SCH ×4 (00:28→18:37)
[2019-09-06 05:35] LABS: Basophils % 0.1 % (0.0-0.8); Hematocrit 31.5 VOL% (42.0-52.0); Lymphocytes # 0.2 10*3/uL (1.4-4.0); Lymphocytes % 2.6 % (21.2-54.2); Mean Corpuscular HGB Conc 31.7 GM/DL (32-36); Mean Corpuscular Volume 89.5 FL (87-102); Mean Platelet Volume 12.8 FL (9.6-12.0); Monocytes % 2.1 % (1.7-12.7); Neutrophils % 87.2 % (38.7-73.9); Platelet Count 120 T/CUMM (130-400); Red Blood Count 3.52 MC/CUMM (3.8-5.5); Red Cell Distribution Width 15.2 % (9.3-17.3); White Blood Count 8.8 T/CUMM (4-12)
[2019-09-06 06:03] LABS: Calcium 7.7 MG/DL (8.5-10.1); Osmolality,Calculated 290.7 MOS/KG (273-304)
[2019-09-06 06:14] LABS: Band Neutrophils 6 % (0-10); Hypochromasia 1+; Lymphocytes 3 % (20-55); Microcytosis Slight; Platelet Estimate Decreased; Segmented Neutrophils 90 % (50-85); Total Cells Counted 100
[2019-09-06] MEDS: POTASSIUM CHLORIDE 20 MEQ TABLET PO SCH (08:02)
[2019-09-06] MEDS: carvediloL 6.25 MG TABLET PO SCH ×3 (08:02→21:11)
[2019-09-06] MEDS: AMIODARONE 200 MG TABLET PO SCH ×3 (08:02→21:11)
[2019-09-06] MEDS: FUROSEMIDE 40 MG/4 ML VIAL IV SCH ×2 (08:02→10:34)
[2019-09-06] MEDS: ASPIRIN CHEW 81 MG TABLET PO SCH (08:02)
[2019-09-06] MEDS: VORICONAZOLE 200 MG TABLET PO SCH ×2 (08:03→10:48)
[2019-09-06] MEDS: CEFDINIR 300 MG CAPSULE PO SCH ×3 (08:03→21:12)
[2019-09-06] MEDS: minoxidiL 2.5 MG TABLET PO SCH ×3 (08:03→21:12)
[2019-09-06] MEDS: FAMOTIDINE 20 MG TABLET PO SCH (08:03)
[2019-09-06] MEDS: methylPREDNISolone SOD SUC 40 MG/1 ML VIAL IV SCH (10:38)
[2019-09-06] MEDS ORDERED: MORPHINE 4 MG/1 ML VIAL IV PRN (14:18)
[2019-09-06] MEDS ORDERED: VORICONAZOLE 50 MG TABLET PO SCH (21:00)
[2019-09-06] MEDS: DONEPEZIL 10 MG TABLET PO SCH (21:11)
[2019-09-06] MEDS: ROSUVASTATIN 20 MG TABLET PO SCH (21:11)
[2019-09-06] MEDS: QUEtiapine 25 MG TABLET PO SCH (21:12)
[2019-09-06] MEDS: INSULIN GLARGINE 100 UNIT/ML SUBCUT SCH (21:12)
[2019-09-06] MEDS: SERTRALINE 25 MG TABLET PO SCH (21:12)
[2019-09-07] MEDS: INSULIN LISPRO 100 UNIT/ML SUBCUT SCH ×4 (00:41→18:43)
[2019-09-07 05:06] LABS: Basophils % 0.2 % (0.0-0.8); Eosinophils % 0.1 % (0.00-10.9); Hematocrit 29.6 VOL% (42.0-52.0); Hemoglobin 9.6 GM/DL (14.0-18.0); Immature Granulocytes % 2.6 %; Immature Granulocytes Absolute 0.27 #; Lymphocytes # 0.3 10*3/uL (1.4-4.0); Lymphocytes % 2.8 % (21.2-54.2); Mean Corpuscular HGB Conc 32.4 GM/DL (32-36); Mean Corpuscular Volume 88.4 FL (87-102); Mean Platelet Volume 12.5 FL (9.6-12.0); Monocytes % 5.3 % (1.7-12.7); Platelet Count 160 T/CUMM (130-400); Red Blood Count 3.35 MC/CUMM (3.8-5.5); Red Cell Distribution Width 14.3 % (9.3-17.3); White Blood Count 10.5 T/CUMM (4-12)
[2019-09-07 05:32] LABS: Hypochromasia 1+; Lymphocytes 2 % (20-55); Microcytosis Slight; Ovalocytes Slight; Platelet Estimate Adequate; Segmented Neutrophils 95 % (50-85); Total Cells Counted 100
[2019-09-07 05:38] LABS: Osmolality,Calculated 295.5 MOS/KG (273-304)
[2019-09-07] MEDS: carvediloL 6.25 MG TABLET PO SCH ×2 (09:36→21:38)
[2019-09-07] MEDS: ASPIRIN CHEW 81 MG TABLET PO SCH (09:36)
[2019-09-07] MEDS: AMIODARONE 200 MG TABLET PO SCH ×2 (09:36→21:38)
[2019-09-07] MEDS: POTASSIUM CHLORIDE 20 MEQ TABLET PO SCH (09:36)
[2019-09-07] MEDS: minoxidiL 2.5 MG TABLET PO SCH ×2 (09:36→21:39)
[2019-09-07] MEDS: POTASSIUM CHLORIDE RIDER 10 MEQ in PREMIX 1 EACH IV SCH ×3 (09:37→13:17)
[2019-09-07] MEDS: CEFDINIR 300 MG CAPSULE PO SCH ×2 (09:37→21:39)
[2019-09-07] MEDS: FAMOTIDINE 20 MG TABLET PO SCH (09:37)
[2019-09-07] MEDS: LORazepam 2 MG/1 ML VIAL IV PRN (20:36)
[2019-09-07] MEDS: INSULIN GLARGINE 100 UNIT/ML SUBCUT SCH (21:38)
[2019-09-07] MEDS: ROSUVASTATIN 20 MG TABLET PO SCH (21:38)
[2019-09-07] MEDS: DONEPEZIL 10 MG TABLET PO SCH (21:38)
[2019-09-07] MEDS: SERTRALINE 25 MG TABLET PO SCH (21:39)
[2019-09-07] MEDS: QUEtiapine 25 MG TABLET PO SCH (21:39)
[2019-09-08] MEDS: INSULIN LISPRO 100 UNIT/ML SUBCUT SCH ×2 (00:22→05:24)
[2019-09-08] MEDS: LORazepam 2 MG/1 ML VIAL IV PRN (06:28)
[2019-09-08] MEDS: minoxidiL 2.5 MG TABLET PO SCH (08:56)
[2019-09-08] MEDS: POTASSIUM CHLORIDE 20 MEQ TABLET PO SCH (08:57)
[2019-09-08] MEDS: AMIODARONE 200 MG TABLET PO SCH (08:57)
[2019-09-08] MEDS: FAMOTIDINE 20 MG TABLET PO SCH (08:57)
[2019-09-08] MEDS: CEFDINIR 300 MG CAPSULE PO SCH (08:57)
[2019-09-08] MEDS: ASPIRIN CHEW 81 MG TABLET PO SCH (08:57)
[2019-09-08] MEDS: carvediloL 6.25 MG TABLET PO SCH (08:57)
[2019-09-08 09:35] VITALS: BP 144/82
== END 2019-09-08 14:40 | disposition expired | DRG 246 ==
LOC: EDBD → EDUNIT# → N.ED 23:04 → SUATTDRO 08-27 01:50 → N.EDINP 08-27 01:50 → N.ICU 08-27 02:36 → N.TELEN 08-31 20:17 → N.4E 09-06 16:49
PROVIDERS: ADMIT Internal Medicine Cardiovascular Disease; ATTEND Family Medicine